=== PATIENT | female | born 1995 | race African-American/Black ===

== ENCOUNTER 2025-01-03 08:24 | Outpatient (AMB) | payer OTHER, SELFPAY ==
--- NOTE | 2025-01-03 08:26 | MHC.PC.OV ---
Vital Signs 01/03/25 08:28 Height 5 ft 6.93 in Weight 362 lb 6 oz BMI 56.9 BP 120/78 Blood Pressure Location Lt brachial Position Sitting Pulse 88 Pulse Source Pulse Oximeter Temp 97.1 F Temp Source Temporal Artery Scan Pulse Oximetry (%) 93 Oxygen Delivery Method Room Air Intake Visit Reasons: establish care Intake Note: Patient is a new patient here to establish care for Schizoaffective disorder, Seizure, Bipolar, Chronic back and neck pain, Arthritis, Kidney issues. Transferring care from [place]. Medical records have been requested and have received. Security Support Analyst Required: Yes Security Support Analyst Language: Medical Records Assistant Name: Shanshadiamitzi (recreational vehicle resort manager) Information Interpreted: non-clinical & clinical (pt decline float operator service prefer recreational vehicle resort manager to translate) Webbing Tacker: Present Accompanied by: QUANTITATIVE CONSULTANT Allergies No Known Allergies Allergy (Verified 01/03/25 08:52) Medication List - Last Reconciled 01/03/25 by Edna Garcia PA-C divalproex (Depakote) 500 mg PO TID 30 days olanzapine 10 mg PO BEDTIME risperidone 2 mg PO DAILY sertraline 100 mg PO DAILY zolpidem 10 mg PO BEDTIME PRN Tobacco use date assessed: 01/03/25 Dental Screening Dental Screen Date: 01/03/25 Did you have a dental visit in the last 12 months?: No Did you have a dental problem in the last 6 months where you did not have access to dental care?: No Was dental information given to patient?: No HPI establish care HPI Details 29-year-old female coming to the office for the 1st time. Presenting with Schizophrenia and Seizure Disorder. The patient's schizophrenia has worsened since discontinuation of her medications in October, with increased auditory hallucinations and aggression reported by her caregiver. Seizures have increased in frequency, occurring almost daily, with episodes described as silent and lasting 15-20 minutes, often triggered by physical exertion. Interruption in her treatment has exacerbated her symptoms. Psychologist through [facility] and on wait list for psychiatrist through [facility]. She does know the frequency and dose of her medications. [facility] Surgical History History of appendectomy Family History (Updated 01/03/25 @ 08:54 by Edna Garcia PA-C) Mother Uterine cancer Other Mental health disorder Social History Housing: Apartment Alcohol intake: never Patient Tobacco Use Status: Never used Tobacco e-Cigarette/Vaping Use: Never Used Second Hand Smoke Exposure: No service: No Current occupational status: disabled Cognitive needs: No Hearing needs: No Vision needs: Yes (Glasses) Female Reproductive History Menstrual control method: none Questionnaire PHQ-9 Over the last 2 weeks, how often have you been bothered by any of the following problems? 1. Little interest or pleasure in doing things: several days 2. Feeling down, depressed, or hopeless: more than half the days 3. Trouble falling or staying asleep, or sleeping too much: more than half the days 4. Feeling tired or having little energy: not at all 5. Poor appetite or overeating: not at all 6. Feeling bad about yourself - or that you are a failure or have let yourself or your family down: not at all 7. Trouble concentrating on things, such as reading the newspaper or watching television: not at all 8. Moving or speaking so slowly that other people could have noticed. Or the opposite - being so fidgety or restless that you have been moving around a lot more than usual: not at all 9. Thoughts that you would be better off or of hurting yourself in some way: not at all Total score: 5 Depression Screening Interpretation: Positive Depression Screening Follow-up: Existing condition and In treatment Depression Screening Done: Yes Source: Developed by Drs. Parag Monroe, Mary Carmen Jacobson, Anuj Rhoades and colleagues, with an educational tracie from [employer]. Thrive Questionnaire Date Thrive assessed: 01/03/25 I am a: Patient What is your living situation today?: I do not have a steady places to live Within the past 12 months, did the food you bought not last and you didn't have the money to get more?: Sometimes True Within the past 12 months, did you worry whether your food would run out before you got money to buy more?: Sometimes True Do you have trouble paying for medicines?: Yes Do you have trouble getting transportation to medical appointments?: Yes Do you have trouble paying your heating and electricity bill?: Yes Do you have trouble taking care of your child, family member or friend?: I choose not to answer this question Do you have trouble with day-to-day activities such as bathing, preparing meals, shopping, managing finances, etc.?: No Are you currently unemployed and looking for a job?: Yes Are you interested in more education?: Yes Please select the resources that you would like help with: None Currently or been in a relationship where the following occur: No concerns reported THRIVE Score: 5 AUDIT C Alcohol Use Questionnaire (AUDIT-C) 1. How often do you have a drink containing alcohol?: Never Total Score: 0 TAMIKA-7 AMB Questionnaire TAMIKA-7 Date TAMIKA - 7 assessed: 01/03/25 Feeling nervous, anxious, or on edge: 0 = Not at all Not being able to stop or control worryin = Not at all Worrying too much about different things: 0 = Not at all Trouble relaxin = Not at all Being so restless that it is hard to sit still: 0 = Not at all Becoming easily annoyed or irritable: 0 = Not at all Feeling afraid as if something awful might happen: 0 = Not at all Total TAMIKA-7 score (0-4 normal; 5-9 mild; 10-14 moderate; 15-21 severe): 0 Source: Developed by Drs. Parag Monroe, Mary Carmen Jacobson, Anuj Rhoades and colleagues, with an educational tracie from [employer]. TAMIKA-7 Assessment Billing TAMIKA-7 Assessment Tool: TAMIKA-7 Assessment 22127 Review of Systems Const Denies body aches, Denies chills, Denies fever(s) and Denies poor appetite Eyes Reports no additional complaints ENT Denies dizziness Card Denies chest pain, Denies lightheadedness and Denies dyspnea Resp Denies cough and Denies dyspnea GI Reports no additional complaints, Denies nausea and Denies vomiting Reports no additional complaints Musc Denies abnormal gait and Reports back pain Skin/Breast Reports system reviewed and no additional complaints, except as documented Neuro Details: seizures Denies abnormal gait and Denies dizziness Psych Reports no additional complaints Physical exam (Primary Care) Vital Signs: Last Vital Signs Temp 97.1 F 01/03/25 08:28 Pulse 88 01/03/25 08:28 BP 120/78 01/03/25 08:28 Pulse Ox 93 01/03/25 08:28 Oxygen Delivery Method Room Air 01/03/25 08:28 BMI result Body Mass Index 56.9 Tobacco/Smoking Status: Tobacco use Status Tobacco use date assessed 01/03/25 01/03/25 08:34 Patient Tobacco Use Status Never used Tobacco 01/03/25 08:34 e-Cigarette/Vaping Use Never Used 01/03/25 08:34 PHQ-9: PHQ-9 Score PHQ-9: Total score 5 01/03/25 11:01 Depression Screening Interpretation: Positive Depression Screening Follow-up: Existing condition and In treatment Thrive Assessment: Date of Thrive Assessment Date Thrive assessed 01/03/25 01/03/25 08:34 Currently or been in a relationship where the following occur: No concerns reported Const General: cooperative, healthy appearing, comfortable and no acute distress Orientation/consciousness: patient oriented x3 HENMT Head: Yes normocephalic Ears: hearing grossly normal bilaterally General nose exam: Normal external nose present Eyes General: appearance normal, both eyes and all related structures Conjunctivae: conjunctivae normal Neck Neck: Yes full ROM and Yes no lymphadenopathy Resp Effort & Inspection: normal respiratory effort Auscultation: clear to auscultation bilaterally, no crackles, no rales, no rhonchi and no wheezes Cardio Rate: regular rate Rhythm: regular rhythm Skin General skin exam: no rashes or lesions noted Neuro General: patient oriented x3 Gait exam (Neuro): Normal gait present Extrem General: Yes normal to inspection, Yes full ROM and No edema Psych Affect: normal affect Attitude: cooperative Insight: Good insight present (Psych) Judgement: Good judgement present (Psych) Coding Level of Care Code New Pt Level 4 (10494) Diagnoses Back pain M54.9 Schizophrenia F20.9 Bipolar disorder F31.9 Seizure disorder G40.909 Additional Codes TAMIKA-7 Assessment Billing - TAMIKA-7 Assessment Tool: TAMIKA-7 Assessment 46310 ([id number]) Assessment & Plan Assessment & Plan (1) Back pain: Code(s): M54.9 - Dorsalgia, unspecified Category: Medical Plan: Advised patient to use Tylenol and ibuprofen as needed for pain. This time defer from muscle relaxers as she is on sedating medications and did not want to contribute to sedation. (2) Schizophrenia: Code(s): F20.9 - Schizophrenia, unspecified Category: Medical Plan: Due to the high dose of multiple medications recommend reintroducing medications slowly. Start with Depakote and Risperdal for mood stabilization and treatment of seizure disorder. Plan to further introduce olanzapine following week. Treatment for schizophrenia will include a gradual introduction of Risperdal and Depakote to manage mood stabilization and seizure control, ensuring adherence to reduce relapse. First week start with Depakote and Risperdal 2nd week introduce olanzapine and follow up at that time with Depakote level to be drawn. (3) Bipolar disorder: Code(s): F31.9 - Bipolar disorder, unspecified Category: Medical Plan: Plan to restart on Risperdal for the first week along with Depakote and re-introduce Olanzapine in week 2 and follow up at that time. Currently following with [facility] for counseling services and on wait list for psychiatrist. (4) Seizure disorder: Code(s): G40.909 - Epilepsy, unspecified, not intractable, without status epilepticus Category: Medical Plan: Plan to restart on Depakote 2 redraw labs in 2 weeks after initiation for Depakote levels. Referral placed to Neurology for further management. Plan Referral to a neurologist and human resources recruiter is initiated to provide comprehensive care. The patient will continue receiving psychological support through [facility], with emphasis on psychiatric referral for integrated care. This note was constructed using voice recognition software. While every effort has been made to ensure accuracy and hat body inspector, still areas may have been included sometimes these areas may affect the content or meeting of the given symptoms. Total time spent caring for the patient today was 30 minutes. This includes time spent before the visit reviewing the chart, time spent during the visit, and time spent after the visit and documentation. Patient was informed and verbally consented to the use of an ambient scribe for clinic note documentation during this visit. Orders: Orders Complete Blood Count Auto Diff Today Z00.00 - Encounter for general adult medical examination without abnormal findings Comprehensive Met. Panel Today Z00.00 - Encounter for general adult medical examination without abnormal findings TSH reflex Free T4 Today Z00.00 - Encounter for general adult medical examination without abnormal findings Free T4 (Free Thyroxine) Today Z00.00 - Encounter for general adult medical examination without abnormal findings Vitamin B12 and Folate Today Z00.00 - Encounter for general adult medical examination without abnormal findings Vitamin D 25-OH Total Today Z00.00 - Encounter for general adult medical examination without abnormal findings Hemoglobin A1c Today Z13.1 - Encounter for screening for diabetes mellitus Referrals FOLDER TIER Referral Z12.4 - Encounter for screening for malignant neoplasm of cervix Optometry Referral Z00.00 - Encounter for general adult medical examination without abnormal findings Neurology Referral G40.909 - Epilepsy, unspecified, not intractable, without status epilepticus Medications: New zolpidem 10 mg PO BEDTIME PRN 30 tabs 0RF sleep risperidone 2 mg PO DAILY 90 tabs 0RF divalproex (Depakote) 500 mg PO TID 30 days 90 tabs 0RF sertraline 100 mg PO DAILY 90 tabs 1RF olanzapine 10 mg PO BEDTIME 90 tabs 0RF
[2025-01-03 08:28] VITALS: BP 120/78; PULSE 88; TEMP 36.2; O2SAT 93; BMI 56.9
--- OUTSIDE RECORDS SUMMARY | 2025-01-03 08:41 | XMS_ITS | Encounter Summary ---
Author Organization [employer] Address [address] [place] [address] Care Team Providers Care Casing Sewer Name Role Phone Unavailable Primary Care Provider Unavailabl e Reason for Visit * Reason Onset Date Comments New patient appt. 10/03/2024 Encounter Details Date Type Department Care Team (Late st Contact Info) Description 10/03/2024 Telephone [facility] [address] [place] [address] Singh Dunham MD [address] [place] [address] New patient appt. Social History Tobacco Use Types Packs/Day Years Used Date Smoking Tobacco: Never Assessed Comments Unknown Sex and Gender Information Value Date Recorded Sex Assigned at Female 10/03/2024 10:11 AM EST Legal Sex Female 10:11 AM EST Gender Identity Female 10/03/2024 10:11 AM EST Sexual Orientation Not on file documented as of this encounter Miscellaneous Notes * Telephone Encounter - Tri Reich - 12/24/2024 11:36 AM EDT Outgoing call to patient to book New Patient appt. No answer. ( Need to swicth plan to C3 ) * Telephone Encounter - Tri Reich - 10/03/2024 10:13 AM EST Patient added to [facility] New patient wait list as of 10/03/24. documented in this encounter Plan of Treatment Not on file documented as of this encounter Visit Diagnoses Not on filedocumented in this encounter
--- OUTSIDE RECORDS SUMMARY | 2025-01-03 08:41 | XMS_ITS | Clinical Summary ---
Author Organization [employer] Address [address] [place] [address] Care Team Providers Care Phone Screener Name Role Phone Unavailable Primary Care Provider Unavailabl e Social History Tobacco Use Types Packs/Day Years Used Date Smoking Tobacco: Never Assessed Comments Unknown Sex and Gender Information Value Date Recorded Sex Assigned at Female 10/03/2024 10:11 AM EST Legal Sex Female 10:11 AM EST Gender Identity Female 10/03/2024 10:11 AM EST Sexual Orientation Not on file Plan of Treatment Health Maintenance Due Date Last Done Comments Depression Screening 1993 HIV Screening 1993 SDOH Screening 1993 Alcohol/Substance Use Screening 2005 Tobacco Screening 2005 Family Planning (PISQ) 2008 Hepatitis C Screening 2011 DTaP/Tdap/Td Vaccines (1 - Tdap) 2012 Hepatitis B Vaccines (1 of 3 - 19+ 3-dose series) 2012 Pap Smear 2014 Cervical Cancer Screening 2023 HPV/Cotest 2023 COVID-19 Vaccine (1 - 2023-2 5 season) 2024 Influenza Vaccine (#1) 2024 Zoster Vaccines (1 of 2) 2043 RSV Patients and Pa tients Aged 60 years or older (1 - 1-dose 75+ series) 2068 HIB Vaccines Aged Out No longer eligi ble based on patient's age to complete this topic HPV Vaccines Aged Out No longer eligi ble based on patient's age to complete this topic Hepatitis A Vaccines Aged Out No long er eligible based on patient's age to complete this topic IPV Vaccines Aged Out No longer eligi ble based on patient's age to complete this topic Meningococcal Vaccine Aged Out No jakob anurag eligible based on patient's age to complete this topic Pneumococcal Vaccine: Pediat rics (0 to 5 Years) and At-Risk Patients (6 to 49) Years) Aged Out No longer eligible b ased on patient's age to complete this topic RSV under 20 months Aged Out No longe r eligible based on patient's age to complete this topic Rotavirus Vaccines Aged Out No longer eligible based on patient's age to complete this topic Insurance [facility] STANDARD
== END 2025-01-03 09:22 | disposition home or self-care (01) ==
DX: M54.9 Dorsalgia, unspecified (principal); F20.9 Schizophrenia, unspecified; F31.9 Bipolar disorder, unspecified; G40.909 Epilepsy, unspecified, not intractable, without status epilepticus

== ENCOUNTER → 2025-01-03 08:24 | Outpatient (BNVA) | payer OTHER, SELFPAY | DX: M54.9 Dorsalgia, unspecified (principal); F20.9 Schizophrenia, unspecified; F31.9 Bipolar disorder, unspecified; G40.909 Epilepsy, unspecified, not intractable, without status epilepticus | CPT/HCPCS: 96127; 99202 ==

== ENCOUNTER 2025-01-17 10:53 | Outpatient (REF) | payer OTHER, SELFPAY ==
[2025-01-17 12:34] LABS: MANUAL DIFF FLAG NO
[2025-01-17 12:51] LABS: Basophils Percent Auto 0.3 % (0-2); Eosinophils Absolute Auto 0.2 X10*3/uL (0.0-0.4); Eosinophils Percent Auto 1.9 % (0-4); Hematocrit 39.9 % (37.0-47.0); Hemoglobin 12.9 g/dl (12.0-16.0); Imm Gran Abs Auto 0.01 X10*3/uL (0.00-0.03); Imm Gran Pct Auto 0.1 % (0.0-0.4); Lymphocytes Absolute Auto 2.5 X10*3/uL (1.2-4.9); Lymphocytes Percent Auto 31.8 % (20-40); Mean Corpuscular HGB Conc 32.3 g/dl (31.0-35.0); Mean Corpuscular Volume 83.5 fL (80.0-98.0); Mean Platelet Volume 9.6 fL (9.4-12.3); Monocytes Absolute Auto 0.4 X10*3/uL (0.1-1.2); Monocytes Percent Auto 5.6 % (2-11); Neutrophils Absolute Auto 4.8 x10*3/uL (2.0-8.3); Neutrophils Percent Auto 60.3 % (45-73); Platelet Count 281 X10*3/uL (160-400); Red Blood Count 4.78 X10*6/uL (4.20-5.50); Red Cell Distribution Width 14.2 % (11.0-16.0); White Blood Count 7.9 X10*3/uL (4.8-10.8)
[2025-01-17 12:59] LABS: Estimated Average Glucose 117 mg/dL; Hemoglobin A1c % 5.7 % (<6.0); Total Hemoglobin (HGBA1C) 3400.2538 umol/L
[2025-01-17 13:30] LABS: Valproate 19.7 mcg/mL (50.0-100.0)
[2025-01-17 13:39] LABS: Alanine Aminotransferase 37 U/L (0-31); Albumin Level 3.9 g/dL (3.5-5.0); Alkaline Phosphatase 89 U/L (39-117); Anion Gap 12 (12-20); Aspartate Amino Transferase 20 U/L (5-31); Bilirubin Total 0.4 mg/dL (0.0-1.0); Blood Urea Nitrogen 12 mg/dL (9-16); Carbon Dioxide 23 mmol/L (22-29); Chloride 111 mmol/L (96-108); Estimated Glomerular Filt Rate > 60; Glucose Random 86 mg/dL (60-115); Sodium 142 mmol/L (135-145)
[2025-01-17 13:54] LABS: Free T4 (Free Thyroxine) 1.06 ng/dL (0.71-1.85); TSH reflex Free T4 0.71 uIU/mL (0.32-4.0)
[2025-01-17 14:05] LABS: Folate 11.6 ng/mL (> or = 4.0); Vitamin B12 475 pg/mL (200-900)
--- OUTSIDE RECORDS SUMMARY | 2025-01-17 14:05 | XMS_ITS | Clinical Summary ---
Author Organization [employer] Address [address] [place] [address] Care Team Providers Care Physician Practice Administrator Name Role Phone Unavailable Primary Care Provider [...] patient's age to complete this topic Insurance [facility] STANDARD
== END 2025-01-17 10:54 | disposition home or self-care (01) ==
LOC: HO.LAB 10:53
DX: G40.909 Epilepsy, unspecified, not intractable, without status epilepticus (principal); F20.9 Schizophrenia, unspecified; F31.9 Bipolar disorder, unspecified; R26.81 Unsteadiness on feet; R60.0 Localized edema; Z00.00 Encounter for general adult medical examination without abnormal findings; Z13.1 Encounter for screening for diabetes mellitus
CPT/HCPCS: 36415; 80053; 80164; 82306; 82607; 82746; 83036; 84439; 84443; 85025; 99212

== ENCOUNTER 2025-01-17 10:53 | Outpatient (AMB) | payer OTHER, SELFPAY ==
--- NOTE | 2025-01-17 11:02 | A.OFFPC_ITS ---
Vital Signs 01/17/25 11:04 Height 5 ft 6.93 in Weight 365 lb 8 oz BMI 57.4 BP 120/80 Blood Pressure Location Lt brachial Position Sitting Pulse 68 Pulse Source Pulse Oximeter Temp 97.1 F Temp Source Temporal Artery Scan Pulse Oximetry (%) 96 Oxygen Delivery Method Room Air Intake Visit Reasons: 2 week f/u Intake Note: Patient is here to follow up on med review. Complaint of swelling of both legs. Transportation Services Representative Required: Yes Transportation Services Representative Language: Vascular Tech Name: Tori (alodize machine operator) Information Interpreted: non-clinical & clinical (pt decline unloading checker service prefer DIRECTOR CRITICAL CARE to translate for her) Sharepoint Analyst: Present Accompanied by: DIRECTOR CRITICAL CARE Allergies No Known Allergies Allergy (Verified 01/17/25 11:10) Medication List - Last Reconciled 01/17/25 by Edna Garcia PA-C divalproex (Depakote) 500 mg PO TID 30 days olanzapine 10 mg PO BEDTIME risperidone 2 mg PO DAILY sertraline 100 mg PO DAILY zolpidem 10 mg PO BEDTIME PRN Tobacco use date assessed: 01/03/25 Dental Screening Dental Screen Date: 01/03/25 HPI 2 week f/u HPI Details 29-year-old female with past medical his tory of bipolar disorder, schizophrenia and seizure disorder last seen 12/2024 coming in for medication follow up. Presenting with recurrent seizures and associated symptoms. The seizures are ongoing and began before the last medical consultation. She reports mild headaches that began approximately two-three weeks ago, which intensify with sun exposure and environmental changes, and do not jethro spontaneously. She has experienced drowsiness attributed to medications, including risperidone, olanzapine, Depakote, and Zolpidem, affecting her daily function due to excessive tiredness. Peripheral edema in the lower extremities is noted, aggravated by increased physical activity. Although she has not been on antihypertensive medication since October, her blood pressure remains well- controlled. [facility] Surgical History History of appendectomy Family History Mother Uterine cancer Other Mental health disorder Social History Housing: Apartment Alcohol intake: never Patient Tobacco Use Status: Never used Tobacco e-Cigarette/Vaping Use: Never Used Second Hand Smoke Exposure: No service: No Current occupational status: disabled Cognitive needs: No Hearing needs: No Vision needs: Yes (Glasses) Questionnaire Thrive Questionnaire Date Thrive assessed: 11/05/24 I am a: Patient What is your living situation today?: I do not have a steady places to live I am temporarily staying with others Within the past 12 months, did the food you bought not last and you didn't have the money to get more?: Sometimes True Within the past 12 months, did you worry whether your food would run out before you got money to buy more?: Sometimes True Do you have trouble paying for medicines?: Yes Do you have trouble getting transportation to medical appointments?: Yes Do you have trouble paying your heating and electricity bill?: Yes Do you have trouble taking care of your child, family member or friend?: I choose not to answer this question Do you have trouble with day-to-day activities such as bathing, preparing meals, shopping, managing finances, etc.?: No Are you currently unemployed and looking for a job?: Yes Are you interested in more education?: Yes THRIVE Score: 5 TAMIKA-7 AMB Questionnaire TAMIKA-7 Date TAMIKA - 7 assessed: 01/03/25 Source: Developed by Drs. Parag Monroe, Mary Carmen Jacobson, Anuj Rhoades and colleagues, with an educational tracie from [employer]. Review of Systems Const Denies body aches, Denies chills, Denies fever(s), Denies headache(s) and Denies poor appetite Eyes Reports no additional complaints ENT Denies dizziness and Denies headache(s) Card Denies chest pain and Denies dyspnea Resp Denies dyspnea GI Denies abdominal pain, Denies constipation, Denies diarrhea, Denies nausea and Denies vomiting Reports no additional complaints Musc Reports no additional complaints and Denies abnormal gait Skin/Breast Reports system reviewed and no additional complaints, except as documented Neuro Denies abnormal gait, Denies dizziness and Denies headache(s) Psych Reports no additional complaints Physical exam (Primary Care) Vital Signs: Last Vital Signs Temp 97.1 F 01/17/25 11:04 Oxygen Delivery Method Room Air 01/17/25 11:04 BMI result Body Mass Index 57.4 Tobacco/Smoking Status: Tobacco use Status Tobacco use date assessed 01/03/25 01/03/25 08:34 Patient Tobacco Use Status Never used Tobacco 01/03/25 08:34 e-Cigarette/Vaping Use Never Used 01/03/25 08:34 Thrive Assessment: Date of Thrive Assessment Date Thrive assessed 11/05/24 01/17/25 10:53 Const General: cooperative, healthy appearing, comfortable and no acute distress Orientation/consciousness: patient oriented x3 HENMT Head: Yes normocephalic Ears: hearing grossly normal bilaterally General nose exam: Normal external nose present Eyes General: appearance normal, both eyes and all related structures Conjunctivae: conjunctivae normal Neck Neck: Yes full ROM and Yes no lymphadenopathy Resp Effort & Inspection: normal respiratory effort Auscultation: clear to auscultation bilaterally, no crackles, no rales, no rhonchi and no wheezes Cardio Rate: regular rate Rhythm: regular rhythm Skin General skin exam: no rashes or lesions noted Neuro General: patient oriented x3 Gait exam (Neuro): Normal gait present Extrem General: Yes normal to inspection, Yes full ROM and No edema Psych Affect: normal affect Attitude: cooperative Insight: Good insight present (Psych) Judgement: Good judgement present (Psych) Coding Level of Care Code Est Pt Level 4 (75655) Diagnoses Seizure disorder G40.909 Schizophrenia F20.9 Bipolar disorder F31.9 Gait instability R26.81 Lower extremity edema R60.0 Assessment & Plan Assessment & Plan (1) Seizure disorder: Code(s): G40.909 - Epilepsy, unspecified, not intractable, without status epilepticus Category: Medical Plan: Per patient's DIRECTOR CRITICAL CARE patient had a seizure several days ago despite the use of her Depakote. Ordered for valproic acid labs and also discussed with DIRECTOR CRITICAL CARE if the patient has as breakthrough seizure to go to the ER regardless of whether the patient is stable or not. Patient was also provided with neurology's phone number today advised to call today for appointment (2) Schizophrenia: Code(s): F20.9 - Schizophrenia, unspecified Category: Medical Plan: Patient on multiple psych medications reports feeling fatigued however they do manage her symptoms well. Referral placed urgently to outpatient psych clinic and message sent to [facility] as well. (3) Bipolar disorder: Code(s): F31.9 - Bipolar disorder, unspecified Category: Medical Plan: See above plan for schizophrenia. Patient to restart on her sertraline advised to use 50 mg for 1-2 weeks before increasing to 100 mg for tolerability. (4) Gait instability: Code(s): R26.81 - Unsteadiness on feet Category: Medical Plan: Patient having gait instability related to functional status as well as lower extremity edema. Patient would like a Rollator walker for prolonged distance which order was placed today. (5) Lower extremity edema: Code(s): R60.0 - Localized edema Category: Medical Plan: Patient having lower extremity edema previously on Lasix. I discussed with patient this is not appropriate given her age and minor symptoms. No evidence of fluid overload at this time lungs are clear to auscultation and very mild edema in bilateral lower extremities. Advised the use of compression stockings and patient was provided with a prescription today. Also advised to elevate the legs and exercise as tolerated. Plan I will monitor the patient's seizure activity closely and assess Depakote levels due to persistent migraine headaches. Urgent ER visits are advised should seizures worsen. Conservative management of leg edema includes leg elevation, c ompression therapy, and regular activity. Although her blood pressure is currently stable, I await information on her previous hypertension medication to guide further treatment. Referrals to neurologists and an eye exam appointment are pending to address outstanding concerns. This note was constructed using voice recognition software. While every effort has been made to ensure accuracy and film developer, still areas may have been included sometimes these areas may affect the content or meeting of the given symptoms. Total time spent caring for the patient today was twenty minutes. This includes time spent before the visit reviewing the chart, time spent during the visit, and time spent after the visit and documentation. Patient was informed and verbally consented to the use of an ambient scribe for clinic note documentation during this visit. Orders: Orders Valproate Today G40.909 - Epilepsy, unspecified, not intractable, without status epilepticus Referrals Psychiatry Outpatient Consultation Service F20.9 - Schizophrenia, unspecified Medications: New comp.stocking,knee,long,medium As directed 10-15mmHg 12 ea 0RF R60.0 - Localized edema walker (Ultra-Light Rollator misc) As directed 1 ea 0RF R26.81 - Unsteadiness on feet, R60.0 - Localized edema
[2025-01-17 11:04] VITALS: BP 120/80; PULSE 68; TEMP 36.2; O2SAT 96; BMI 57.4
--- OUTSIDE RECORDS SUMMARY | 2025-01-17 12:37 | XMS_ITS | Clinical Summary ---
Author Organization [employer] Address [address] [place] [address] Care Team Providers Care Outreach Professional Name Role Phone Unavailable Primary Care Provider [...] patient's age to complete this topic Insurance [facility] STANDARD
== END 2025-01-17 11:47 | disposition home or self-care (01) ==
LOC: HO.HMCH 10:53
DX: G40.909 Epilepsy, unspecified, not intractable, without status epilepticus (principal); F20.9 Schizophrenia, unspecified; F31.9 Bipolar disorder, unspecified; R26.81 Unsteadiness on feet; R60.0 Localized edema

== ENCOUNTER 2025-03-03 12:48 | Outpatient (AMB) | payer MEDICAID, SELFPAY ==
--- OUTSIDE RECORDS SUMMARY | 2025-03-03 13:01 | XMS_ITS | Clinical Summary ---
Author Organization [employer] Address [address] [place] [address] Care Team Providers Care Hand Polisher Name Role Phone Unavailable Primary Care Provider [...] patient's age to complete this topic Meningococcal B Vaccine Aged Out No l onger eligible based on patient's age to complete [...] patient's age to complete this topic Insurance STANDARD
--- NOTE | 2025-03-03 13:06 | MHC.PC.OV ---
Vital Signs 03/03/25 13:10 Height 5 ft 6.93 in Weight 383 lb 9.669 oz BMI 60.2 BP 130/72 Blood Pressure Location Lt brachial Position Sitting Pulse 98 Pulse Source Pulse Oximeter Temp 97.1 F Temp Source Temporal Artery Scan Pulse Oximetry (%) 97 Oxygen Delivery Method Room Air Intake Visit Reasons: f/u seizure d/o and psych Intake Note: Patient is here to follow up on Seizure, psych. Documentation Supervisor Required: Yes Documentation Supervisor Language: Manufacturing Finance Manager Name: Tammy ([id number]) Information Interpreted: non-clinical & clinical It Compliance Analyst: Present Accompanied by: Family/Other Allergies No Known Allergies Allergy (Verified 03/03/25 13:21) Medication List - Last Reconciled 03/03/25 by Edna Garcia PA-C comp.stocking,knee,long,medium As directed 10-15mmHg divalproex (Depakote) 500 mg PO TID 30 days divalproex 250 mg PO TID olanzapine 10 mg PO BEDTIME risperidone 2 mg PO DAILY sertraline 100 mg PO DAILY walker (Ultra-Light Rollator misc) As directed zolpidem 10 mg PO BEDTIME PRN Tobacco use date assessed: 03/03/25 Dental Screening Dental Screen Date: 01/03/25 HPI f/u seizure d/o and psych HPI Details 29-year-old female with past medical history of bipolar disorder, schizophrenia and seizure disorder last seen 01/2025 coming in for medication follow up. hide dyer Tammy ([id number]) was used for the duration of this visit. Presenting with management needs for a seizure disorder. She has not experienced seizures since the last visit, indicating current medication dosage may be effective. Patient has an upcoming appointment with Neurology for further evaluation of her seizure management and associated issues like CPAP for sleep disturbances. Reports housing instability as she resides in a car, seeking assistance with housing due to her seizure disorder and need for personal care support. Mood improvement noted on Risperidone and Sertraline since the last visit. Awaiting psychiatric service appointment. Newly using a walker and expresses satisfaction with it. Patient has not yet completed her blood work for Depakote levels after her recent dose increase. [facility] Surgical History History of appendectomy Family History Mother Uterine cancer Other Mental health disorder Social History Housing: Apartment Alcohol intake: never Patient Tobacco Use Status: Never used Tobacco e-Cigarette/Vaping Use: Never Used Second Hand Smoke Exposure: No service: No Current occupational status: disabled Cognitive needs: No Hearing needs: No Vision needs: Yes (Glasses) Questionnaire PHQ-9 Over the last 2 weeks, how often have you been bothered by any of the following problems? 1. Little interest or pleasure in doing things: nearly every day 2. Feeling down, depressed, or hopeless: nearly every day 3. Trouble falling or staying asleep, or sleeping too much: nearly every day 4. Feeling tired or having little energy: nearly every day 5. Poor appetite or overeating: more than half the days 6. Feeling bad about yourself - or that you are a failure or have let yourself or your family down: nearly every day 7. Trouble concentrating on things, such as reading the newspaper or watching television: nearly every day 8. Moving or speaking so slowly that other people could have noticed. Or the opposite - being so fidgety or restless that you have been moving around a lot more than usual: nearly every day 9. Thoughts that you would be better off or of hurting yourself in some way: several days Total score: 24 Depression Screening Interpretation: Positive Depression Screening Done: Yes Source: Developed by Drs. Parag Monroe, Mary Carmen Jacobson, Anuj Rhoades and colleagues, with an educational tracie from [employer]. Thrive Questionnaire Date Thrive assessed: 11/05/24 I am a: Patient What is your living situation today?: I do not have a steady places to live I am temporarily staying with others Within the past 12 months, did the food you bought not last and you didn't have the money to get more?: Sometimes True Within the past 12 months, did you worry whether your food would run out before you got money to buy more?: Sometimes True Do you have trouble paying for medicines?: Yes Do you have trouble getting transportation to medical appointments?: Yes Do you have trouble paying your heating and electricity bill?: Yes Do you have trouble taking care of your child, family member or friend?: I choose not to answer this question Do you have trouble with day-to-day activities such as bathing, preparing meals, shopping, managing finances, etc.?: No Are you currently unemployed and looking for a job?: Yes Are you interested in more education?: Yes THRIVE Score: 5 TAMIKA-7 AMB Questionnaire TAMIKA-7 Date TAMIKA - 7 assessed: 01/03/25 Source: Developed by Drs. Parag Monroe, Mary Carmen Jacobson, Anuj Rhoades and colleagues, with an educational tracie from [employer]. Review of Systems Const Denies body aches, Denies chills, Denies fever(s) and Denies poor appetite Eyes Reports no additional complaints ENT Reports no additional complaints Card Denies chest pain, Denies lightheadedness and Denies dyspnea Resp Denies dyspnea GI Denies nausea and Denies vomiting Reports no additional complaints Musc Reports abnormal gait Skin/Breast Reports system reviewed and no additional complaints, except as documented Neuro Details: No reported seizures Reports abnormal gait Psych Reports no additional complaints Physical exam (Primary Care) Vital Signs: Last Vital Signs Temp 97.1 F 03/03/25 13:10 Pulse 98 03/03/25 13:10 BP 130/72 03/03/25 13:10 Pulse Ox 97 03/03/25 13:10 Oxygen Delivery Method Room Air 03/03/25 13:10 BMI result Body Mass Index 60.2 Tobacco/Smoking Status: Tobacco use Status Tobacco use date assessed 03/03/25 03/03/25 13:19 Patient Tobacco Use Status Never used Tobacco 03/03/25 13:07 e-Cigarette/Vaping Use Never Used 03/03/25 13:07 PHQ-9: PHQ-9 Score PHQ-9: Total score 24 03/03/25 16:09 Depression Screening Interpretation: Positive Thrive Assessment: Date of Thrive Assessment Date Thrive assessed 11/05/24 03/03/25 13:07 Const General: cooperative, healthy appearing, comfortable and no acute distress Orientation/consciousness: patient oriented x3 HENMT Head: Yes normocephalic Ears: hearing grossly normal bilaterally General nose exam: Normal external nose present Eyes General: appearance normal, both eyes and all related structures Conjunctivae: conjunctivae normal Neck Neck: Yes full ROM and Yes no lymphadenopathy Resp Effort & Inspection: normal respiratory effort Auscultation: clear to auscultation bilaterally, no crackles, no rales, no rhonchi and no wheezes Cardio Rate: regular rate Rhythm: regular rhythm Skin General skin exam: no rashes or lesions noted Neuro General: patient oriented x3 Gait exam (Neuro): Normal gait present Extrem General: Yes normal to inspection, Yes full ROM and No edema Psych Affect: normal affect Attitude: cooperative Insight: Good insight present (Psych) Judgement: Good judgement present (Psych) Coding Level of Care Code Est Pt Level 3 (96800) Diagnoses Hypersomnolence G47.10 Seizure disorder G40.909 Schizophrenia F20.9 Bipolar disorder F31.9 Gait instability R26.81 Lower extremity edema R60.0 Assessment & Plan Assessment & Plan (1) Hypersomnolence: Code(s): G47.10 - Hypersomnia, unspecified Category: Medical Plan: Patient complaining of hypersomnolence and shortness of breath at night plan to obtain sleep study for further evaluation. Patient also has a evaluation by Neurology coming up later this month. (2) Seizure disorder: Code(s): G40.909 - Epilepsy, unspecified, not intractable, without status epilepticus Category: Medical Plan: Since increasing Depakote patient has not had any further seizures. Reminded patient about blood work to draw Depakote levels. Patient has a appointment with Neurology later this month for further evaluation as well (3) Schizophrenia: Code(s): F20.9 - Schizophrenia, unspecified Category: Medical Plan: Patient on multiple psych medications reports feeling fatigued however they do manage her symptoms well. Referral placed urgently to outpatient psych clinic and message sent to [facility] as well at last visit plan to follow up with these providers for status on referrals (4) Bipolar disorder: Code(s): F31.9 - Bipolar disorder, unspecified Category: Medical Plan: See above plan for schizophrenia. Patient is doing well on sertraline (5) Gait instability: Code(s): R26.81 - Unsteadiness on feet Category: Medical Plan: Patient having gait instability related to functional status as well as lower extremity edema. She has been using a Rollator walker with good benefit and has been using compression stockings as well. (6) Lower extremity edema: Code(s): R60.0 - Localized edema Category: Medical Plan: Patient has been using compression stockings and noticed an improvement in her lower extremity edema. Plan to continue with conservative measurement, exercise as tolerated compression stockings and elevation. Plan The patient will follow up with Neurology on March 11 to further assess and manage her seizure disorder and explore sleep-related issues, such as CPAP use. Current seizure control is effective under Depakote, with ongoing blood level monitoring required. Medications Risperidone and Sertraline will continue unchanged given mood improvement, while a psychiatric consult remains pending. A note was provided stating the need for [facility] services, and support from [facility] is sought for assistance in housing. A sleep study will be arranged. Follow-up will be planned in three months for re-evaluation. This note was constructed using voice recognition software. While every effort has been made to ensure accuracy and freelance graphic designer, still areas may have been included sometimes these areas may affect the content or meeting of the given symptoms. Total time spent caring for the patient today was 20 minutes. This includes time spent before the visit reviewing the chart, time spent during the visit, and time spent after the visit and documentation. Patient was informed and verbally consented to the use of an ambient scribe for clinic note documentation during this visit. Orders: Orders RT home sleep study Today G47.10 - Hypersomnia, unspecified
[2025-03-03 13:10] VITALS: BP 130/72; PULSE 98; TEMP 36.2; O2SAT 97; BMI 60.2
== END 2025-03-03 13:58 | disposition home or self-care (01) ==
LOC: HO.HMCH 12:49
DX: G47.10 Hypersomnia, unspecified (principal); G40.909 Epilepsy, unspecified, not intractable, without status epilepticus; F20.9 Schizophrenia, unspecified; F31.9 Bipolar disorder, unspecified; R26.81 Unsteadiness on feet; R60.0 Localized edema

== ENCOUNTER → 2025-03-03 12:48 | Outpatient (BNVA) | payer MEDICAID, SELFPAY | DX: G47.10 Hypersomnia, unspecified (principal); G40.909 Epilepsy, unspecified, not intractable, without status epilepticus; F20.9 Schizophrenia, unspecified; F31.9 Bipolar disorder, unspecified; R26.81 Unsteadiness on feet; R60.0 Localized edema | CPT/HCPCS: 99212 ==

== ENCOUNTER 2025-03-06 19:51 | Inpatient (IN) | payer MEDICAID, SELFPAY ==
[2025-03-06 19:55] VITALS: BP 155/89; PULSE 89; RESP 16; TEMP 36.2; O2SAT 97; BMI 72.7
--- NOTE | 2025-03-06 20:07 | ECG_ITS ---
Test Reason : seizure? Blood Pressure : */* mmHG Vent. Rate : 79 BPM Atrial Rate : 79 BPM P-R Int : 178 ms QRS Dur : 88 ms QT Int : 406 ms P-R-T Axes : 40 -5 35 degrees QTcB Int : 465 ms Normal sinus rhythm Minimal voltage criteria for LVH, may be normal variant ( R in aVL ) Borderline ECG No previous ECGs available Referred By: Generic ED Physician Electronically Signed By: Amos Pablo
[2025-03-06 20:22] LABS: MANUAL DIFF FLAG NO
[2025-03-06 20:26] LABS: Basophils Percent Auto 0.3 % (0-2); Eosinophils Absolute Auto 0.2 X10*3/uL (0.0-0.4); Eosinophils Percent Auto 2.8 % (0-4); Hemoglobin 12.4 g/dl (12.0-16.0); Imm Gran Abs Auto 0.02 X10*3/uL (0.00-0.03); Imm Gran Pct Auto 0.3 % (0.0-0.4); Lymphocytes Absolute Auto 3.1 X10*3/uL (1.2-4.9); Lymphocytes Percent Auto 38.9 % (20-40); Mean Corpuscular HGB Conc 32.6 g/dl (31.0-35.0); Mean Corpuscular Hemoglobin 26.8 pg (27.0-33.0); Mean Corpuscular Volume 82.3 fL (80.0-98.0); Mean Platelet Volume 9.3 fL (9.4-12.3); Monocytes Absolute Auto 0.6 X10*3/uL (0.1-1.2); Monocytes Percent Auto 7.8 % (2-11); Neutrophils Absolute Auto 3.9 x10*3/uL (2.0-8.3); Neutrophils Percent Auto 49.9 % (45-73); Platelet Count 237 X10*3/uL (160-400); Red Blood Count 4.62 X10*6/uL (4.20-5.50); Red Cell Distribution Width 13.9 % (11.0-16.0); White Blood Count 7.9 X10*3/uL (4.8-10.8)
--- NOTE | 2025-03-06 20:34 | PC.NURSE ---
pt foreign exchange services manager, ekg, labs collected pt on 1:1 for safety, seizure pads in place.
[2025-03-06 20:40] LABS: Valproate 18.3 mcg/mL (50.0-100.0)
[2025-03-06 20:42] LABS: Alanine Aminotransferase 55 U/L (0-31); Albumin Level 3.7 g/dL (3.5-5.0); Alkaline Phosphatase 106 U/L (39-117); Anion Gap 12 (12-20); Aspartate Amino Transferase 27 U/L (5-31); Bilirubin Total 0.3 mg/dL (0.0-1.0); Blood Urea Nitrogen 13 mg/dL (9-16); Calcium 8.9 mg/dL (8.4-10.2); Carbon Dioxide 24 mmol/L (22-29); Chloride 110 mmol/L (96-108); Creatinine Clr Calc Pharmacy 164.6; Estimated Glomerular Filt Rate > 60; Glucose Random 142 mg/dL (60-115); Potassium 4.2 mmol/L (3.3-5.1); Sodium 142 mmol/L (135-145); Total Protein 6.7 g/dL (6.5-8.0)
[2025-03-06 20:51] LABS: HCG Quantitative < 2 mIU/mL
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
[2025-03-06 21:00] LABS: Influenza A PCR NEGATIVE (Negative); Influenza B PCR NEGATIVE (Negative); Resp Syncy Virus RNA Qual PCR NEGATIVE (Negative); SARS COV2 PCR INHOUSE NEGATIVE (Negative)
[2025-03-06 21:04] VITALS: BP 123/87; PULSE 83; RESP 16; TEMP 34.4; O2SAT 100
[2025-03-06] MEDS: Divalproex Sodium 250 MG TABLET.DR 750 MG PO (21:20)
--- NOTE | 2025-03-06 21:21 | PC.NURSE ---
medicated per mar.
--- NOTE | 2025-03-06 21:27 | PC.NURSE ---
report given to Hailey. awaiting to be transferred to pod.
[2025-03-06 21:33] LABS: Ethanol < 10 mg/dL
--- NOTE | 2025-03-06 22:52 | PC.NURSE ---
late entry, patient transitioned into pod, provided snack and drinks, asked patient for urine w lean [employer] black belt present.
--- NOTE | 2025-03-07 01:18 | PC.NURSE ---
provider requests client awakened to facilitate assessment
--- NOTE | 2025-03-07 01:27 | PC.NURSE ---
t/w brought drinks and light snacks to bedside once urine collected to hopefully facilitate return to restfulness.
[2025-03-07 01:34] LABS: Appearance Urine Clear; Color Urine Yellow; Glucose Urine UA Negative (Negative); Leukocyte Esterase Urine Small (1+) (Negative); Nitrite Urine Negative (Negative); Specific Gravity - Urine 1.025 (1.005-1.025); UMIC TRIGGER UACC YES; Urine Blood Negative (Negative); Urine Ketones Trace mg/dL (Negative); Urine Protein Negative (Neg-Trace)
[2025-03-07 01:40] LABS: Bacteria Urine None Seen (None Seen); Hyaline Casts Urine 0-2 /LPF (0-2); RBC Urine 0-2 /HPF (0-2); UACC Culture Trigger YES; WBC Urine 21-50 /HPF (0-5)
[2025-03-07 01:45] LABS: Amphetamine Screen Urine Not Detected (Not Detect); Barbiturates, Urine Not Detected (Not Detect); Benzodiazepines Screen Urine Not Detected (Not Detect); Buprenorphine Scr Not Detected (Not Detect); Cannabinoid Screen Urine Not Detected (Not Detect); Cocaine Screen Urine Not Detected (Not Detect); Fentanyl, urine Not Detected (Not Detect); Methadone Screen, Urine Not Detected (Not Detect); Opiate Screen Urine Not Detected (Not Detect); Oxycodone Screen Urine Not Detected (Not Detect); Phencyclidine Screen Urine Not Detected (Not Detect)
--- NOTE | 2025-03-07 03:20 | PC.NURSE ---
t/w reinforced post interview that client didnt need to remain in room, however a peer seemed a little excessively curious regarding waving to patient (for the time of 299) and t/w reinforced appropriate boundaries for client.
[2025-03-07 06:05] VITALS: BP 119/56; PULSE 75; RESP 16; TEMP 36.7; O2SAT 96
--- NOTE | 2025-03-07 07:29 | PC.NURSE ---
Assumed care of patient at 0645, patient appears to be in no apparent distress this am, calm and cooperative offering no complaints to this RN. Pt provided with breakfast tray. Continue plan of care for IPLOC
--- NOTE | 2025-03-07 07:52 | PC.NURSE ---
med rec completed with medication reconcillation hx from [facility], pt unable to verify which meds she is on
--- NOTE | 2025-03-07 08:36 | PHA.MEDREC ---
Addendum entered by Mateus Foster RPh 03/07/25 08:57: Med rec was reviewed by [facility]. Original Note: Pharmacy Consult ? Medication Reconciliation Pharmacy reviewed med rec done by nursing. Claims match what was confirmed. Pt poor historian and doesn't know what her meds are or the last time she took them.
[2025-03-07 13:04] VITALS: BP 155/85; PULSE 80; RESP 18; TEMP 36.5; O2SAT 97
[2025-03-07 13:05] VITALS: BMI 72.6
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
[2025-03-07] MEDS: Divalproex Sodium 250 MG TABLET.DR PO ×2 (14:35→21:38)
[2025-03-07] MEDS: Divalproex Sodium 500 MG TABLET.DR PO ×2 (14:35→21:38)
--- NOTE | 2025-03-07 15:09 | PC.NURSE ---
Salvador presented to the unit from the ED on a CV. She has a history of schizoaffective disorder and PTSD. Skin check and safety check completed with [facility] Gina. Salvador is primarily Bel[place]ian speaking and investigation manager utilized for the admission process. She does not have any significant PMH. She denies use of ETOH, tobacco, or drugs. She came to the ED as she had SI and was becoming aggressive with her caregiver. Salvador was settled onto the unit and meals ordered. She currently reports AVH and speaks with a little girl. Salvador currently denies SI/HI. She was cooperative with the admission process. She was placed on 15 minute checks for safety.
[2025-03-07 19:24] VITALS: BP 149/78; PULSE 81; RESP 18; TEMP 36.9; O2SAT 96
[2025-03-07] MEDS: OLANZapine 7.5 MG TABLET 15 MG PO (21:38)
[2025-03-07] MEDS: Zolpidem Tartrate 5 MG TABLET 10 MG PO (21:44)
--- NOTE | 2025-03-08 00:57 | PC.NURSE ---
TW attempted to return call to pt's caregiver, Shantel, as previously requested during brief conversation earlier in the evening. TW called the number that was provided, , at approx. [phone]; however despite 2 attempts, the phone did not ring and went directly to voicemail. There was no name identified in the recording and no beep or prompt to leave a voicemail.
[2025-03-08 08:00] VITALS: BP 120/67; PULSE 78; RESP 16; TEMP 36.5; O2SAT 94
[2025-03-08 08:01] LABS: Alanine Aminotransferase 43 U/L (0-31); Albumin Level 3.4 g/dL (3.5-5.0); Alkaline Phosphatase 97 U/L (39-117); Anion Gap 12 (12-20); Aspartate Amino Transferase 21 U/L (5-31); Bilirubin Total 0.3 mg/dL (0.0-1.0); Blood Urea Nitrogen 13 mg/dL (9-16); Calcium 8.6 mg/dL (8.4-10.2); Carbon Dioxide 25 mmol/L (22-29); Chloride 107 mmol/L (96-108); Cholesterol 178 mg/dL (<200); Creatinine Clr Calc Pharmacy 230.1; Estimated Glomerular Filt Rate > 60; Glucose Random 115 mg/dL (60-115); HDL Cholesterol 47 mg/dL (>40); LDL Cholesterol Calculated 105 mg/dL (<100); Potassium 4.4 mmol/L (3.3-5.1); Sodium 140 mmol/L (135-145); Total Protein 6.4 g/dL (6.5-8.0); Triglycerides 132 mg/dL (<150)
[2025-03-08 08:05] LABS: Estimated Average Glucose 128 mg/dL; Hemoglobin A1C 137.9227 umol/L; Hemoglobin A1c % 6.1 % (<6.0); Total Hemoglobin (HGBA1C) 3228.2837 umol/L
[2025-03-08] MEDS: Sertraline HCL 100 MG TABLET PO (08:32)
[2025-03-08] MEDS: Divalproex Sodium 500 MG TABLET.DR PO ×3 (08:32→20:19)
[2025-03-08] MEDS: Divalproex Sodium 250 MG TABLET.DR PO ×3 (08:32→20:19)
--- NOTE | 2025-03-08 13:01 | P.PNPSI_ITS ---
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 Patient reports feeling better today; pt stated, I don't hear the little girl anymore. I woke up and I don't hear her . per nursing, slept 8 hours last night. denies SI/HI/VH/AH. pt reports she would like help with information regarding homeless shelters in the area. Continues current tx plan. Medication Compliance: Yes Side effects from medications: No Attending Groups: No Mental Status Exam Mental Status Exam Narrative: Pt is alert and oriented; behavior is cooperative and calm; dressed in casual attire; mood is described as better ; eye contact appropriate; Speech is normal rate, volume and not pressured; thought process is organized; Thought content is on tx; denies SI/HI/VH/AH. Diagnostics Vital Signs (24Hr): Vital Signs - 24 hr 03/07/25 13:04 03/07/25 19:24 03/08/25 08:00 Temperature 97.7 F 98.5 F 97.7 F Pulse Rate 80 81 78 Respiratory Rate 18 18 16 Blood Pressure 155/85 H 149/78 H 120/67 Pulse Oximetry 97 96 94 Oxygen Delivery Method Room Air Room Air Room Air BMI result Body Mass Index 72.6 Labs 03/06/25 20:18 03/08/25 07:18 Labs: Laboratory Results - last 48 hr 03/06/25 03/07/25 03/08/25 20:18 01:25 07:18 WBC 7.9 RBC 4.62 Hgb 12.4 Hct 38.0 MCV 82.3 MCH 26.8 L MCHC 32.6 RDW 13.9 Plt Count 237 MPV 9.3 L Immature Gran % (Auto) 0.3 Neut % (Auto) 49.9 Lymph % (Auto) 38.9 [place] % (Auto) 7.8 Eos % (Auto) 2.8 Baso % (Auto) 0.3 Lymph # (Auto) 3.1 [place] # (Auto) 0.6 Eos # (Auto) 0.2 Baso # (Auto) 0.0 Abs Immat Gran (auto) 0.02 Absolute Neuts (auto) 3.9 Absolute Nucleated RBC 0.000 Nucleated RBC % (auto) 0.0 Sodium 142 140 Potassium 4.2 4.4 Chloride 110 H 107 Carbon Dioxide 24 25 Anion Gap 12 12 BUN 13 13 Creatinine 0.77 0.55 Estim Creat Clear Calc 164.6 230.1 Estimated GFR > 60 > 60 Random Glucose 142 H 115 Estimat Average Glucose 128 Hemoglobin A1c % 6.1 H Calcium 8.9 8.6 Total Bilirubin 0.3 0.3 AST 27 21 ALT 55 H 43 H Alkaline Phosphatase 106 97 Total Protein 6.7 6.4 L Albumin 3.7 3.4 L Triglycerides 132 Cholesterol 178 LDL Cholesterol, Calc 105 H HDL Cholesterol 47 Beta HCG, Quant < 2 Urine Color Yellow Urine Appearance Clear Urine pH 6.0 Ur Specific [place] 1.025 Urine Protein Negative Urine Glucose (UA) Negative Urine Ketones Trace Urine Blood Negative Urine Nitrite Negative Ur Leukocyte Esterase Small (1+) H Urine RBC 0-2 Urine WBC 21-50 H Ur Squamous Epith Cells 6-10 Urine Bacteria None Seen Hyaline Casts 0-2 Urine Opiates Screen Not Detected Ur Buprenorphine Scrn Not Detected Ur Oxycodone Screen Not Detected Urine Methadone Screen Not Detected Urine Fentanyl Screen Not Detected Ur Barbiturates Screen Not Detected Valproic Acid 18.3 L Ur Phencyclidine Scrn Not Detected Ur Amphetamines Screen Not Detected U Benzodiazepines Scrn Not Detected Urine Cocaine Screen Not Detected U Marijuana (THC) Screen Not Detected Ethyl Alcohol < 10 Influenza Type A (PCR) NEGATIVE Influenza Type B (PCR) NEGATIVE RSV RNA Qual (PCR) NEGATIVE SARS-CoV-2 RNA (RT-PCR) NEGATIVE Medications Medications Current Medications Acetaminophen (Acetaminophen 325 Mg Tablet) 650 mg PO Q6H PRN PRN Reason: Headache/Pain, Scale 1-10 Al Hydroxide/Mg Hydroxide (Magnesium Hydrox/Alum Hydrox 30 Ml Oral.Susp) 30 ml PO Q6H PRN PRN Reason: Heartburn/Nausea Amoxicillin (Amoxicillin 500 Mg Capsule) 500 mg PO Q12H [facility] Stop: 03/13/25 09:00 Divalproex Sodium (Divalproex Sodium 250 Mg Tablet.) 250 mg PO TID [facility] Last Admin: 03/08/25 08:32 Dose: 250 mg Divalproex Sodium (Divalproex Sodium 500 Mg Tablet.Dr) 500 mg PO TID [facility] Last Admin: 03/08/25 08:32 Dose: 500 mg Hydroxyzine HCl (Hydroxyzine Hcl 25 Mg Tablet) 25 mg PO Q6H PRN PRN Reason: mild anxiety Magnesium Hydroxide (Milk Of Magnesia 30 Ml Oral.Susp) 30 ml PO DAILY PRN PRN Reason: Constipation Nicotine (Nicotine 21 Mg Patch.Td24) 21 mg TRANSDERMA DAILY PRN PRN Reason: Nicotine Cravings Nicotine Polacrilex (Nicotine Polacrilex 2 Mg Gum) 4 mg BUCCAL Q2H PRN PRN Reason: Nicotine Cravings Olanzapine (Olanzapine 7.5 Mg Tablet) 15 mg PO BEDTIME [facility] Last Admin: 03/07/25 21:38 Dose: 15 mg Olanzapine (Olanzapine 5 Mg Tablet) 5 mg PO Q4H PRN PRN Reason: Psychosis Sertraline HCl (Sertraline Hcl 100 Mg Tablet) 100 mg PO DAILY [facility] Last Admin: 03/08/25 08:32 Dose: 100 mg Trazodone HCl (Trazodone Hcl 50 Mg Tablet) 50 mg PO BEDTIME MRX1 PRN PRN Reason: Insomnia Zolpidem Tartrate (Zolpidem Tartrate 5 Mg Tablet) 10 mg PO BEDTIME PRN PRN Reason: sleep Last Admin: 03/07/25 21:44 Dose: 10 mg Allergies Allergies Allergy/AdvReac Type Severity Reaction Status Date / Time No Known Allergies Allergy Verified 03/06/25 19:59 Assessment & Plan Assessment & Plan (1) Schizoaffective disorder: Status: Acute Code(s): F25.9 - Schizoaffective disorder, unspecified (2) PTSD (post-traumatic stress disorder): Status: Acute Code(s): F43.10 - Post-traumatic stress disorder, unspecified (3) Homelessness: Status: Acute Code(s): Z59.00 - Homelessness unspecified Plan Patient is a 29-year-old female with history of schizoaffective disorder and PTSD who self presented to ER due to suicidal ideation and psychosis secondary to medication noncompliance. Plan: CV 15 minute safety checks Continue home medications DC Risperdal Increase Zyprexa to 15mg PO bedtime obtain collateral encourage groups referral to outpatient psychiatric providers discharge planning 03/08: packing machine inspector present. Patient reports feeling better today; pt stated, I don't hear the little girl anymore. I woke up and I don't hear her . per nursing, slept 8 hours last night. denies SI/HI/VH/AH. pt reports she would like help with information regarding homeless shelters in the area. Continues current tx plan. Patient educated on: diagnosis and medication risk/benefits Reason for continued inpatient stay Substantial Risk for: med/psych decompensation Time Spent With Patient Time: Total time managing care of this patient today _20___ minutes.
[2025-03-08 20:00] VITALS: BP 127/59; PULSE 87; RESP 16; TEMP 36.7; O2SAT 95
[2025-03-08] MEDS: OLANZapine 7.5 MG TABLET 15 MG PO (20:18)
[2025-03-08] MEDS: Amoxicillin 500 MG CAPSULE PO (20:19)
[2025-03-09 07:37] VITALS: BP 105/53; PULSE 76; RESP 16; TEMP 36.4; O2SAT 94
[2025-03-09] MEDS: Divalproex Sodium 250 MG TABLET.DR PO ×3 (08:20→20:51)
[2025-03-09] MEDS: Sertraline HCL 100 MG TABLET PO (08:20)
[2025-03-09] MEDS: Amoxicillin 500 MG CAPSULE PO ×2 (08:20→20:51)
[2025-03-09] MEDS: Divalproex Sodium 500 MG TABLET.DR PO ×3 (08:20→20:51)
--- NOTE | 2025-03-09 09:19 | HO.PSYCHPN ---
Subjective Subjective Date of Service: 03/09/25 Reason For Visit: Crisis Subjective Notes: Conditional Voluntary Interim History: historical interpreter present. Patient reports feeling good today; pt stated, the little girl didn't come back . denies SI/HI/VH/AH. keeping to self. pt states she prefers to be alone in room. Will draw Valproic acid level prior to discharge. Medication Compliance: Yes Side effects from medications: No Attending Groups: No Mental Status Exam Mental Status Exam Narrative: Pt is alert and oriented; behavior is cooperative and calm; dressed in casual attire; mood is described as good ; eye contact appropriate; Speech is normal rate, volume and not pressured; thought process is organized; Thought content is on tx; denies SI/HI/VH/AH. Diagnostics Vital Signs (24Hr): Vital Signs - 24 hr 03/08/25 20:00 03/09/25 07:37 Temperature 98.0 F 97.5 F Pulse Rate 87 76 Respiratory Rate 16 16 Blood Pressure 127/59 L 105/53 L Pulse Oximetry 95 94 Oxygen Delivery Method Room Air Room Air BMI result Body Mass Index 72.6 Labs 03/06/25 20:18 03/08/25 07:18 Labs: Laboratory Results - last 48 hr 03/08/25 07:18 Sodium 140 Potassium 4.4 Chloride 107 Carbon Dioxide 25 Anion Gap 12 BUN 13 Creatinine 0.55 Estim Creat Clear Calc 230.1 Estimated GFR > 60 Random Glucose 115 Estimat Average Glucose 128 Hemoglobin A1c % 6.1 H Calcium 8.6 Total Bilirubin 0.3 AST 21 ALT 43 H Alkaline Phosphatase 97 Total Protein 6.4 L Albumin 3.4 L Triglycerides 132 Cholesterol 178 LDL Cholesterol, Calc 105 H HDL Cholesterol 47 Medications Medications Current Medications Acetaminophen (Acetaminophen 325 Mg Tablet) 650 mg PO Q6H PRN PRN Reason: Headache/Pain, Scale 1-10 Al Hydroxide/Mg Hydroxide (Magnesium Hydrox/Alum Hydrox 30 Ml Oral.Susp) 30 ml PO Q6H PRN PRN Reason: Heartburn/Nausea Amoxicillin (Amoxicillin 500 Mg Capsule) 500 mg PO Q12H [facility] Stop: 03/13/25 09:00 Last Admin: 03/09/25 08:20 Dose: 500 mg Divalproex Sodium (Divalproex Sodium 250 Mg Tablet.) 250 mg PO TID [facility] Last Admin: 03/09/25 08:20 Dose: 250 mg Divalproex Sodium (Divalproex Sodium 500 Mg Tablet.Dr) 500 mg PO TID [facility] Last Admin: 03/09/25 08:20 Dose: 500 mg Hydroxyzine HCl (Hydroxyzine Hcl 25 Mg Tablet) 25 mg PO Q6H PRN PRN Reason: mild anxiety Magnesium Hydroxide (Milk Of Magnesia 30 Ml Oral.Susp) 30 ml PO DAILY PRN PRN Reason: Constipation Nicotine (Nicotine 21 Mg Patch.Td24) 21 mg TRANSDERMA DAILY PRN PRN Reason: Nicotine Cravings Nicotine Polacrilex (Nicotine Polacrilex 2 Mg Gum) 4 mg BUCCAL Q2H PRN PRN Reason: Nicotine Cravings Olanzapine (Olanzapine 7.5 Mg Tablet) 15 mg PO BEDTIME [facility] Last Admin: 03/08/25 20:18 Dose: 15 mg Olanzapine (Olanzapine 5 Mg Tablet) 5 mg PO Q4H PRN PRN Reason: Psychosis Sertraline HCl (Sertraline Hcl 100 Mg Tablet) 100 mg PO DAILY [facility] Last Admin: 03/09/25 08:20 Dose: 100 mg Trazodone HCl (Trazodone Hcl 50 Mg Tablet) 50 mg PO BEDTIME MRX1 PRN PRN Reason: Insomnia Zolpidem Tartrate (Zolpidem Tartrate 5 Mg Tablet) 10 mg PO BEDTIME PRN PRN Reason: sleep Last Admin: 03/07/25 21:44 Dose: 10 mg Allergies Allergies Allergy/AdvReac Type Severity Reaction Status Date / Time No Known Allergies Allergy Verified 03/06/25 19:59 Assessment & Plan Assessment & Plan (1) Schizoaffective disorder: Status: Acute Code(s): F25.9 - Schizoaffective disorder, unspecified (2) PTSD (post-traumatic stress disorder): Status: Acute Code(s): F43.10 - Post-traumatic stress disorder, unspecified (3) Homelessness: Status: Acute Code(s): Z59.00 - Homelessness unspecified Plan Patient is a 29-year-old female with history of schizoaffective disorder and PTSD who self presented to ER due to suicidal ideation and psychosis secondary to medication noncompliance. Plan: CV 15 minute safety checks Continue home medications DC Risperdal Increase Zyprexa to 15mg PO bedtime obtain collateral encourage groups referral to outpatient psychiatric providers discharge planning 03/08: historical interpreter present. Patient reports feeling better today; pt stated, I don't hear the little girl anymore. I woke up and I don't hear her . per nursing, slept 8 hours last night. denies SI/HI/VH/AH. pt reports she would like help with information regarding homeless shelters in the area. Continues current tx plan. 03/09: historical interpreter present. Patient reports feeling good today; pt stated, the little girl didn't come back . denies SI/HI/VH/AH. keeping to self. pt states she prefers to be alone in room. Will draw Valproic acid level prior to discharge. Patient educated on: diagnosis, medication risk/benefits and therapeutic strategies Reason for continued inpatient stay Substantial Risk for: med/psych decompensation Time Spent With Patient Time: Total time managing care of this patient today _20___ minutes.
[2025-03-09 19:15] VITALS: BP 136/69; PULSE 75; RESP 18; TEMP 36.4; O2SAT 95
[2025-03-09] MEDS: OLANZapine 7.5 MG TABLET 15 MG PO (20:51)
[2025-03-09] MEDS: Zolpidem Tartrate 5 MG TABLET 10 MG PO (20:58)
[2025-03-10 07:52] VITALS: BP 136/79; PULSE 71; RESP 16; TEMP 36.4; O2SAT 96
[2025-03-10] MEDS: Amoxicillin 500 MG CAPSULE PO ×2 (08:19→20:33)
[2025-03-10] MEDS: Divalproex Sodium 500 MG TABLET.DR PO ×3 (08:19→20:33)
[2025-03-10] MEDS: Sertraline HCL 100 MG TABLET PO (08:19)
[2025-03-10] MEDS: Divalproex Sodium 250 MG TABLET.DR PO ×3 (08:19→20:33)
--- NOTE | 2025-03-10 08:46 | P.PNPSI_ITS ---
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 Signed 3 day notice. Pt reports she would like to be discharged d/t having a housing appointment on Monday. Patient reports feeling good today; denies SI/HI/VH/AH. Labs ordered. Pt c/o vaginal itching and discharge; ordered Diflucan 150mg PO once. Medication Compliance: Yes Side effects from medications: No Attending Groups: No Mental Status Exam Mental Status Exam Narrative: Pt is alert and oriented; behavior is cooperative and calm; dressed in casual attire; mood is described as good ; eye contact appropriate; Speech is normal rate, volume and not pressured; thought process is organized; Thought content is on discharge; denies SI/HI/VH/AH. Diagnostics Vital Signs (24Hr): Vital Signs - 24 hr 03/09/25 19:15 03/10/25 07:52 Temperature 97.5 F 97.5 F Pulse Rate 75 71 Respiratory Rate 18 16 Blood Pressure 136/69 136/79 Pulse Oximetry 95 96 Oxygen Delivery Method Room Air Room Air BMI result Body Mass Index 72.6 Labs 03/06/25 20:18 03/08/25 07:18 Medications Medications Current Medications Acetaminophen (Acetaminophen 325 Mg Tablet) 650 mg PO Q6H PRN PRN Reason: Headache/Pain, Scale 1-10 Al Hydroxide/Mg Hydroxide (Magnesium Hydrox/Alum Hydrox 30 Ml Oral.Susp) 30 ml PO Q6H PRN PRN Reason: Heartburn/Nausea Amoxicillin (Amoxicillin 500 Mg Capsule) 500 mg PO Q12H [facility] Stop: 03/13/25 09:00 Last Admin: 03/10/25 08:19 Dose: 500 mg Divalproex Sodium (Divalproex Sodium 250 Mg Tablet.) 250 mg PO TID [facility] Last Admin: 03/10/25 08:19 Dose: 250 mg Divalproex Sodium (Divalproex Sodium 500 Mg Tablet.) 500 mg PO TID [facility] Last Admin: 03/10/25 08:19 Dose: 500 mg Hydroxyzine HCl (Hydroxyzine Hcl 25 Mg Tablet) 25 mg PO Q6H PRN PRN Reason: mild anxiety Magnesium Hydroxide (Milk Of Magnesia 30 Ml Oral.Susp) 30 ml PO DAILY PRN PRN Reason: Constipation Nicotine (Nicotine 21 Mg Patch.Td24) 21 mg TRANSDERMA DAILY PRN PRN Reason: Nicotine Cravings Nicotine Polacrilex (Nicotine Polacrilex 2 Mg Gum) 4 mg BUCCAL Q2H PRN PRN Reason: Nicotine Cravings Olanzapine (Olanzapine 7.5 Mg Tablet) 15 mg PO BEDTIME [facility] Last Admin: 03/09/25 20:51 Dose: 15 mg Olanzapine (Olanzapine 5 Mg Tablet) 5 mg PO Q4H PRN PRN Reason: Psychosis Sertraline HCl (Sertraline Hcl 100 Mg Tablet) 100 mg PO DAILY [facility] Last Admin: 03/10/25 08:19 Dose: 100 mg Trazodone HCl (Trazodone Hcl 50 Mg Tablet) 50 mg PO BEDTIME MRX1 PRN PRN Reason: Insomnia Zolpidem Tartrate (Zolpidem Tartrate 5 Mg Tablet) 10 mg PO BEDTIME PRN PRN Reason: sleep Last Admin: 03/09/25 20:58 Dose: 10 mg Allergies Allergies Allergy/AdvReac Type Severity Reaction Status Date / Time No Known Allergies Allergy Verified 03/06/25 19:59 Assessment & Plan Assessment & Plan (1) Schizoaffective disorder: Status: Acute Code(s): F25.9 - Schizoaffective disorder, unspecified (2) PTSD (post-traumatic stress disorder): Status: Acute Code(s): F43.10 - Post-traumatic stress disorder, unspecified (3) Homelessness: Status: Acute Code(s): Z59.00 - Homelessness unspecified Plan Patient is a 29-year-old female with history of schizoaffective disorder and PTSD who self presented to ER due to suicidal ideation and psychosis secondary to medication noncompliance. Plan: CV 15 minute safety checks Continue home medications DC Risperdal Increase Zyprexa to 15mg PO bedtime obtain collateral encourage groups referral to outpatient psychiatric providers discharge planning 03/08: accelerator systems director present. Patient reports feeling better today; pt stated, I don't hear the little girl anymore. I woke up and I don't hear her . per nursing, slept 8 hours last night. denies SI/HI/VH/AH. pt reports she would like help with information regarding homeless shelters in the area. Continues current tx plan. 03/09: accelerator systems director present. Patient reports feeling good today; pt stated, the little girl didn't come back . denies SI/HI/VH/AH. keeping to self. pt states she prefers to be alone in room. Will draw Valproic acid level prior to discharge. 03/10: accelerator systems director present. Signed 3 day notice. Pt reports she would like to be discharged d/t having a housing appointment on Monday. Patient reports feeling good today; denies SI/HI/VH/AH. Labs ordered. Pt c/o vaginal itching and discharge; ordered Diflucan 150mg PO once. Patient educated on: diagnosis, medication risk/benefits, therapeutic strategies and medical condition Reason for continued inpatient stay Substantial Risk for: med/psych decompensation Time Spent With Patient Time: Total time managing care of this patient today _20___ minutes.
[2025-03-10] MEDS: Fluconazole 150 MG TABLET PO (17:17)
[2025-03-10 19:33] LABS: Ammonia 60 umol/L (13-55)
[2025-03-10 19:37] LABS: Valproate 67.8 mcg/mL (50.0-100.0)
[2025-03-10 19:42] LABS: Alanine Aminotransferase 44 U/L (0-31); Albumin Level 3.5 g/dL (3.5-5.0); Alkaline Phosphatase 94 U/L (39-117); Aspartate Amino Transferase 34 U/L (5-31); Bilirubin Direct < 0.2 mg/dL (0.0-0.5); Bilirubin Total 0.2 mg/dL (0.0-1.0); Total Protein 6.9 g/dL (6.5-8.0)
[2025-03-10 20:00] VITALS: BP 126/68; PULSE 76; RESP 18; TEMP 36.9; O2SAT 95
[2025-03-10] MEDS: OLANZapine 7.5 MG TABLET 15 MG PO (20:32)
[2025-03-10] MEDS: Zolpidem Tartrate 5 MG TABLET 10 MG PO (20:36)
[2025-03-11 07:54] VITALS: BP 128/60; PULSE 80; TEMP 36.4; O2SAT 94
[2025-03-11] MEDS: Amoxicillin 500 MG CAPSULE PO (08:34)
[2025-03-11] MEDS: Divalproex Sodium 250 MG TABLET.DR PO (08:34)
[2025-03-11] MEDS: Divalproex Sodium 500 MG TABLET.DR PO (08:35)
[2025-03-11] MEDS: Sertraline HCL 100 MG TABLET PO (08:35)
--- NOTE | 2025-03-11 11:43 | P.DS_ITS ---
DS: Providers Provider Date of Service: 03/11/25 Date of admission: 03/07/25 11:40 Date of discharge: 03/11/25 Primary care physician: [facility] Admitting clinician: Naomi Mccarty Attending physician on admission: Jason Hodges Attending physician on discharge: Jason Hodges Discharging clinician: Naomi Mccarty DS: Diagnosis Discharge Diagnosis (1) Schizoaffective disorder: Status: Acute (2) PTSD (post-traumatic stress disorder): Status: Acute (3) Homelessness: Status: Acute DS: Medications Discharge Medications Home Medications: Previous Rx's ?Medication ?Instructions ?Recorded divalproex 250 mg tablet,delayed 250 mg PO TID #90 tabs 02/13/25 release divalproex 500 mg tablet,delayed 500 mg PO TID 30 days #90 tabs 02/13/25 release (Depakote) sertraline 100 mg tablet 100 mg PO DAILY #90 tabs 02/13/25 zolpidem 10 mg tablet 10 mg PO BEDTIME PRN sleep #30 tabs 02/13/25 amoxicillin 500 mg capsule 500 mg PO Q12H 2 days #4 caps 03/11/25 olanzapine 15 mg tablet 15 mg PO BEDTIME 30 days #30 tabs 03/11/25 Mental Status Exam Mental Status Exam Narrative: Pt is alert and oriented; behavior is cooperative and calm; dressed in casual attire; mood is described as good ; eye contact appropriate; Speech is normal rate, volume and not pressured; thought process is organized; Thought content is on discharge; denies SI/HI/VH/AH. Data Data Completed and Pending Completed studies during hospitalization [Text1]: 03/06/25 03/07/25 03/08/25 20:18 01:25 07:18 WBC 7.9 RBC 4.62 Hgb 12.4 Hct 38.0 MCV 82.3 MCH 26.8 L MCHC 32.6 RDW 13.9 Plt Count 237 MPV 9.3 L Immature Gran % (Auto) 0.3 Neut % (Auto) 49.9 Lymph % (Auto) 38.9 Forest % (Auto) 7.8 Eos % (Auto) 2.8 Baso % (Auto) 0.3 Lymph # (Auto) 3.1 Forest # (Auto) 0.6 Eos # (Auto) 0.2 Baso # (Auto) 0.0 Abs Immat Gran (auto) 0.02 Absolute Neuts (auto) 3.9 Absolute Nucleated RBC 0.000 Nucleated RBC % (auto) 0.0 Sodium 142 140 Potassium 4.2 4.4 Chloride 110 H 107 Carbon Dioxide 24 25 Anion Gap 12 12 BUN 13 13 Creatinine 0.77 0.55 Estim Creat Clear Calc 164.6 230.1 Estimated GFR > 60 > 60 Random Glucose 142 H 115 Estimat Average Glucose 128 Hemoglobin A1c % 6.1 H Calcium 8.9 8.6 Total Bilirubin 0.3 0.3 Direct Bilirubin AST 27 21 ALT 55 H 43 H Alkaline Phosphatase 106 97 Ammonia Total Protein 6.7 6.4 L Albumin 3.7 3.4 L Triglycerides 132 Cholesterol 178 LDL Cholesterol, Calc 105 H HDL Cholesterol 47 Beta HCG, Quant < 2 Urine Color Yellow Urine Appearance Clear Urine pH 6.0 Ur Specific [place] 1.025 Urine Protein Negative Urine Glucose (UA) Negative Urine Ketones Trace Urine Blood Negative Urine Nitrite Negative Ur Leukocyte Esterase Small (1+) H Urine RBC 0-2 Urine WBC 21-50 H Ur Squamous Epith Cells 6-10 Urine Bacteria None Seen Hyaline Casts 0-2 Urine Opiates Screen Not Detected Ur Buprenorphine Scrn Not Detected Ur Oxycodone Screen Not Detected Urine Methadone Screen Not Detected Urine Fentanyl Screen Not Detected Ur Barbiturates Screen Not Detected Valproic Acid 18.3 L Ur Phencyclidine Scrn Not Detected Ur Amphetamines Screen Not Detected U Benzodiazepines Scrn Not Detected Urine Cocaine Screen Not Detected U Marijuana (THC) Screen Not Detected Ethyl Alcohol < 10 Influenza Type A (PCR) NEGATIVE Influenza Type B (PCR) NEGATIVE RSV RNA Qual (PCR) NEGATIVE SARS-CoV-2 RNA (RT-PCR) NEGATIVE 03/10/25 19:01 WBC RBC Hgb Hct MCV MCH MCHC RDW Plt Count MPV Immature Gran % (Auto) Neut % (Auto) Lymph % (Auto) [place] % (Auto) Eos % (Auto) Baso % (Auto) Lymph # (Auto) [place] # (Auto) Eos # (Auto) Baso # (Auto) Abs Immat Gran (auto) Absolute Neuts (auto) Absolute Nucleated RBC Nucleated RBC % (auto) Sodium Potassium Chloride Carbon Dioxide Anion Gap BUN Creatinine Estim Creat Clear Calc Estimated GFR Random Glucose Estimat Average Glucose Hemoglobin A1c % Calcium Total Bilirubin 0.2 Direct Bilirubin < 0.2 AST 34 H ALT 44 H Alkaline Phosphatase 94 Ammonia 60 H Total Protein 6.9 Albumin 3.5 Triglycerides Cholesterol LDL Cholesterol, Calc HDL Cholesterol Beta HCG, Quant Urine Color Urine Appearance Urine pH Ur Specific [place] Urine Protein Urine Glucose (UA) Urine Ketones Urine Blood Urine Nitrite Ur Leukocyte Esterase Urine RBC Urine WBC Ur Squamous Epith Cells Urine Bacteria Hyaline Casts Urine Opiates Screen Ur Buprenorphine Scrn Ur Oxycodone Screen Urine Methadone Screen Urine Fentanyl Screen Ur Barbiturates Screen Valproic Acid 67.8 Ur Phencyclidine Scrn Ur Amphetamines Screen U Benzodiazepines Scrn Urine Cocaine Screen U Marijuana (THC) Screen Ethyl Alcohol Influenza Type A (PCR) Influenza Type B (PCR) RSV RNA Qual (PCR) SARS-CoV-2 RNA (RT-PCR) 03/07/25 Unknown Urine clean catch - Clean Catch Midstream Urine Culture - Final Strep agalactiae (Grp B) DS: Summary Hospital Course Hospital Course: Patient is a 29-year-old female with history of schizoaffective disorder and PTSD who self presented to ER due to suicidal ideation and psychosis secondary to medication noncompliance. Per crisis report, patient presented to ER with her golf ball winder due to suicidal ideation and psychosis. Patient had became aggressive with her golf ball winder and reports being told by the little girl to darrian Rasmussen . Patient reports suicidal ideation with a plan to overdose on her medications due to having nothing to live for and no one to support her . Patient reports the little girl as bad and someone who is always around and does not leave her alone . Patient reports she is here alone, homeless; with all of her family in [place]. Patient has been off of her psychiatric medications for an undisclosed amount of time. She reports experiencing increased auditory and visual hallucinations. Patient was observed covering her ears and pulling her hair in distress as she tells the little girl to shut up . denies HI. Patient reports she is currently homeless and has been sleeping in her brother's car; she reports poor sleep. Patient was sent to live with a friend of her brothers who resides in [place] in August 2024 and was reportedly kicked out of the [place] w[facility]ff's home last week and has since been staying in her brother's car that her golf ball winder drives. Collateral was obtained from patient's golf ball winder(Valery) who reports patient has not been medication compliant and has been decompensating. Patient reports her PCP is currently prescribing her psychiatric medications. During admission assessment, patient presents alert and oriented x3. Calm and c ooperative. communications department chairperson present. Patient reports feeling depressed ; patient stated, Valery brought me to the hospital because I hear the girl. I was going to hit her but I didn't because she is good to me. But the girl told me to . Patient reports she did have suicidal ideation prior to admission but denies at this time. Patient stated, Valery has the pills so I can't do that. The bad girl makes me feel bad and suicidal . Patient observed responding to internal stimuli; during interview patient would look to the right and say, bad, bad, bad . Patient denies SI/HI. Patient reports she has been medication compliant however, her valproic acid level on 03/06/2025 was 18.3. Plan: CV 15 minute safety checks Continue home medications DC Risperdal Increase Zyprexa to 15mg PO bedtime obtain collateral encourage groups referral to outpatient psychiatric providers discharge planning communications department chairperson present. Patient reports feeling better today; pt stated, I don't hear the little girl anymore. I woke up and I don't hear her . per nursing, slept 8 hours last night. denies SI/HI/VH/AH. pt reports she would like help with information regarding homeless shelters in the area. Continues current tx plan. communications department chairperson present. Patient reports feeling good today; pt stated, the little girl didn't come back . denies SI/HI/VH/AH. keeping to self. pt states she prefers to be alone in room. Will draw Valproic acid level prior to discharge. communications department chairperson present. Signed 3 day notice. Pt reports she would like to be discharged d/t having a housing appointment on Monday. Patient reports feeling good today; denies SI/HI/VH/AH. Labs ordered. Pt c/o vaginal itching and discharge; ordered Diflucan 150mg PO once. Patient reports feeling good ; looking forward to discharge. Patient reports she plans on attending her housing appointment and sleep study tomorrow. denies SI/HI/VH/AH. Valproic acid level 67.8 on 03/10/25. Pt plans on following up with her outpatient providers. Status at Discharge Cognitive/behavioral status at discharge: Patient has insight and demonstrates good judgment in terms of wanting to pursue treatment. Patient has a safety plan that includes presenting to the closest ER or calling 911 if feeling unsafe. Functional status at discharge: independent ambulation Overall status at discharge: patient is back to baseline Time Spent with Patient Time attestation: Total time managing care of this patient today _20___ minutes. Time spent: Less than 30 minutes Discharge Plan Discharge Anticipated Discharge Date/Time: 03/11/25 11:37 Patient Disposition: Home, Self-Care Discharge Diagnosis: Schizoaffective d/o, PTSD Referrals: [facility] [Primary Care Provider] - 1 Week (03-11-25 Please contact your primary care provider to schedule your follow up appt within 7-10 days of discharge. No release on file.) Discharge Medications: New amoxicillin 500 mg Capsule 500 mg PO Q12H 2 Days Qty: 4 0RF olanzapine 15 mg tablet 15 mg PO BEDTIME 30 Days Qty: 30 0RF Continued divalproex [Depakote] 500 mg tablet,delayed release (DR/EC) 500 mg PO TID 30 Days Qty: 90 0RF divalproex 250 mg tablet,delayed release (DR/EC) 250 mg PO TID Qty: 90 0RF sertraline 100 mg tablet 100 mg PO DAILY Qty: 90 1RF zolpidem 10 mg tablet 10 mg PO BEDTIME PRN (Reason: sleep) Qty: 30 0RF Discontinued olanzapine 10 mg tablet 10 mg PO BEDTIME Qty: 90 0RF risperidone 2 mg tablet 2 mg PO DAILY Qty: 90 0RF Discharge Orders: Discharge Order (Routine); Ordered 03/11/25 Ordered By: Naomi Mccarty Diet: Regular diet Activity on Discharge: As tolerated Stand Alone Forms: Patient Portal Discharge page, Community Support Print Language: Latvian Care Plan Goals: Maintain mood and safe behaviors Take medications as prescribed Practice coping skills Continue with outpatient providers and reach out to them as needed Health Concerns: Mood stability and behaviors Plan of Treatment: Follow up with your PCP, psychiatric provider and other outpatient providers regarding above concerns Take medications as prescribed Assessment: Patient has insight and demonstrates good judgment in terms of wanting to pursue treatment. Patient has a safety plan that includes presenting to the closest ER or calling 911 if feeling unsafe. Discharge Date/Time: 03/11/25 12:00
== END 2025-03-11 12:00 | disposition home or self-care (01) | DRG 750 ==
LOC: HO.ED 03-07 07:06 → HO.PADLT16 03-07 11:40
PROVIDERS: Emergency Medicine Emergency Medical Services; Physician Assistant Medical; Admitting Provider Registered Nurse; Emergency Provider Emergency Medicine; Responsible Provider Registered Nurse; Visit Provider Psychiatry & Neurology Psychiatry
DX: F25.9 Schizoaffective disorder, unspecified (principal); Z68.45 Body mass index [BMI] 70 or greater, adult; R45.851 Suicidal ideations; E66.01 Morbid (severe) obesity due to excess calories; Z71.3 Dietary counseling and surveillance; G40.909 Epilepsy, unspecified, not intractable, without status epilepticus; Z59.01 Sheltered homelessness; F43.10 Post-traumatic stress disorder, unspecified; Z20.822 Contact with and (suspected) exposure to COVID-19; Z79.899 Other long term (current) drug therapy
CPT/HCPCS: 0241U; 36415; 80053; 80061; 80076; 80164; 80307; 81001; 82140; 83036; 84702; 85025; 87086; 87147; 93005; 99285; S9485

== ENCOUNTER → 2025-03-06 20:07 | Outpatient (BNV) | payer MEDICAID, SELFPAY | PROVIDERS: Admitting Provider Registered Nurse; Emergency Provider Emergency Medicine; Visit Provider Internal Medicine Cardiovascular Disease | DX: Z13.6 Encounter for screening for cardiovascular disorders (principal) | CPT/HCPCS: 93010 ==

== ENCOUNTER → 2025-03-07 11:40 | Outpatient (BNV) | payer MEDICAID, SELFPAY | PROVIDERS: Admitting Provider Registered Nurse; Emergency Provider Emergency Medicine; Responsible Provider Registered Nurse; Visit Provider Registered Nurse | DX: F25.9 Schizoaffective disorder, unspecified (principal); F43.10 Post-traumatic stress disorder, unspecified; Z59.00 Homelessness unspecified | CPT/HCPCS: 90792; 99232 ==

== ENCOUNTER 2025-04-04 11:23 | Outpatient (AMB) | payer MEDICAID, SELFPAY ==
[2025-04-04 11:35] VITALS: BP 140/92; PULSE 88; TEMP 36.3; O2SAT 97; BMI 60.4
--- NOTE | 2025-04-04 11:35 | MHC.PC.OV ---
Vital Signs 04/04/25 11:35 Height 5 ft 6.93 in Weight 385 lb 2 oz BMI 60.4 BP 140/92 H Blood Pressure Location Rt brachial Position Sitting Pulse 88 Pulse Source Pulse Oximeter Temp 97.3 F Temp Source Temporal Artery Scan Pulse Oximetry (%) 97 Oxygen Delivery Method Room Air Intake Visit Reasons: [facility] 03/11/25 for schizophrenic disorder and ptsd Cashier Assistant Required: Yes Cashier Assistant Language: Japanese Accompanied by: Friend Allergies No Known Allergies Allergy (Verified 04/04/25 11:36) Medication List - Last Reconciled 04/04/25 by Fanny Marlow NP divalproex (Depakote) 500 mg PO TID 30 days divalproex 250 mg PO TID olanzapine 15 mg PO BEDTIME 30 days sertraline 100 mg PO DAILY zolpidem 10 mg PO BEDTIME PRN Tobacco use date assessed: 03/03/25 Dental Screening Dental Screen Date: 01/03/25 HPI HPI Comments History of Present Illness Details 30 y/o Female patient who presents to the clinic today for HDF. Pmhx of Schizoaffective disorder and PTSD. She was admitted at [facility] on 03/07 - 03/11 for an evaluation of suicidal ideation and psychosis secondary to medication noncompliance. Today Denies SA or SI. DC'd Risperdal and Increase Zyprexa to 15mg PO bedtime by Hospital Psych. Patient asking for Medication refills - will defer to PCP on this. [facility] Surgical History History of appendectomy Family History Mother Uterine cancer Other Mental health disorder Social History Household Members: Caregiver Housing: Apartment Do you presently have visiting nurse or other home services: No Alcohol intake: never Patient Tobacco Use Status: Never used Tobacco e-Cigarette/Vaping Use: Never Used Second Hand Smoke Exposure: No service: No Current occupational status: disabled Sexual orientation: Straight/Heterosexual Cognitive needs: No Hearing needs: No Vision needs: Yes (Glasses) Questionnaire Thrive Questionnaire Date Thrive assessed: 11/05/24 I am a: Patient What is your living situation today?: I do not have a steady places to live I am temporarily staying with others Within the past 12 months, did the food you bought not last and you didn't have the money to get more?: Sometimes True Within the past 12 months, did you worry whether your food would run out before you got money to buy more?: Sometimes True Do you have trouble paying for medicines?: Yes Do you have trouble getting transportation to medical appointments?: Yes Do you have trouble paying your heating and electricity bill?: Yes Do you have trouble taking care of your child, family member or friend?: I choose not to answer this question Do you have trouble with day-to-day activities such as bathing, preparing meals, shopping, managing finances, etc.?: No Are you currently unemployed and looking for a job?: Yes Are you interested in more education?: Yes THRIVE Score: 5 TAMIKA-7 AMB Questionnaire TAMIKA-7 Date TAMIKA - 7 assessed: 01/03/25 Source: Developed by Drs. Parag Monroe, Mary Carmen Jacobson, Anuj Rhoades and colleagues, with an educational tracie from [employer]. Review of Systems Const All systems reviewed & are unremarkable except as noted in HPI and below Physical exam (Primary Care) Vital Signs: Last Vital Signs Temp 97.3 F 04/04/25 11:35 Pulse 88 04/04/25 11:35 BP 140/92 H 04/04/25 11:35 Pulse Ox 97 04/04/25 11:35 Oxygen Delivery Method Room Air 04/04/25 11:35 BMI result Body Mass Index 60.4 Tobacco/Smoking Status: Tobacco use Status Tobacco use date assessed 03/03/25 04/04/25 11:36 Patient Tobacco Use Status Never used Tobacco 04/04/25 11:36 e-Cigarette/Vaping Use Never Used 04/04/25 11:36 Thrive Assessment: Date of Thrive Assessment Date Thrive assessed 11/05/24 04/04/25 11:36 Const General: comfortable and no acute distress Nutritional Appearance: obese morbidly obese Orientation/consciousness: patient oriented x3 Limitations: ambulation with walker Resp Effort & Inspection: normal respiratory effort Auscultation: clear to auscultation bilaterally Cardio Heart sounds: S1 normal heart sound present and S2 normal heart sound present Neuro General: patient oriented x3, gait normal and moves all extremities Gait exam (Neuro): Assisted gait required Gait assisted method: walker Psych Speech and movement: Normal speech and movement present Coding Level of Care Code Est Pt Level 4 (47664) Diagnoses Schizophrenia, unspecified type F20.9 Schizophrenia type: unspecified Time Spent (min) 20 Assessment & Plan Assessment & Plan (1) Schizophrenia: Code(s): F20.9 - Schizophrenia, unspecified Category: Medical Qualifiers: Schizophrenia type: unspecified Qualified Code(s): F20.9 - Schizophrenia, unspecified Plan: Managed on medications. Dc'd Risperidone and Olanzapine was increased to 15 mg.
--- OUTSIDE RECORDS SUMMARY | 2025-04-04 11:46 | XMS_ITS | Clinical Summary ---
Author Organization [employer] Address [address] [place] [address] Care Team Providers Care Lining Stitcher Name Role Phone Unavailable Primary Care Provider [...] 1993 HIV Screening 1993 SDOH Screening 1993 Disability Screening 1993 Alcohol/Substance Use Screening 2005 Tobacco Screening 2005 Family Planning (PISQ) 2008 Hepatitis C Screening 2011 DTaP/Tdap/Td Vaccines (1 - Tdap) 2012 Hepatitis B Vaccines (1 of 3 - 19+ 3-dose series) 2012 Pap Smear 2014 Cervical Cancer Screening 2023 HPV/Cotest 2023 COVID-19 Vaccine ( - 2023-2 5 season) 2024 Influenza Vaccine (Season Ended) 2025 Zoster Vaccines (1 of 2) 2043 RSV [...] Years) and At-Risk Patients (6 to 49) Years Aged Out No longer eligible b ased on patient's age to complete this topic RSV under 20 months Aged Out No longe r eligible based on patient's age to complete this topic Rotavirus Vaccines Aged Out No longer eligible based on patient's age to complete this topic [place] [place] [address] STANDARD
== END 2025-04-04 11:54 | disposition home or self-care (01) ==
LOC: HO.HMCH 11:24
PROVIDERS: Visit Provider Nurse Practitioner Family
DX: F20.9 Schizophrenia, unspecified (principal)

== ENCOUNTER → 2025-04-04 11:23 | Outpatient (BNVA) | payer MEDICAID, SELFPAY | PROVIDERS: Visit Provider Nurse Practitioner Family | DX: F25.9 Schizoaffective disorder, unspecified (principal); F43.10 Post-traumatic stress disorder, unspecified; Z79.899 Other long term (current) drug therapy | CPT/HCPCS: 99212 ==

== ENCOUNTER 2025-06-03 10:21 | Outpatient (AMB) | payer MEDICAID, SELFPAY ==
--- NOTE | 2025-06-03 10:53 | MHC.PC.OV ---
Vital Signs 06/03/25 10:55 Height 5 ft 6.93 in Weight 373 lb 4 oz BMI 58.6 BP 116/70 Blood Pressure Location Lt brachial Position Sitting Pulse 110 H Pulse Source Pulse Oximeter Pulse Oximetry (%) 96 Oxygen Delivery Method Room Air Intake Visit Reasons: f/u seizure d/o Natural Gas Treating Unit Operator Required: Yes Natural Gas Treating Unit Operator Language: Yi Accompanied by: Self / Same As Patient Allergies No Known Allergies Allergy (Verified 06/03/25 11:07) Medication List - Last Reconciled 06/03/25 by Edna Garcia PA-C divalproex (Depakote) 500 mg PO TID 30 days divalproex 250 mg PO TID olanzapine 15 mg PO BEDTIME 30 days sertraline 100 mg PO DAILY zolpidem 10 mg PO BEDTIME PRN Tobacco use date assessed: 06/03/25 Dental Screening Dental Screen Date: 06/03/25 Did you have a dental visit in the last 12 months?: No Did you have a dental problem in the last 6 months where you did not have access to dental care?: No Was dental information given to patient?: No HPI f/u seizure d/o HPI Details 30-year-old female with past medical history of bipolar disorder, schizophrenia, seizure disorder, PTSD and schizoaffective disorder last seen 03/2025 by nurse practitioner coming in for follow up. virtualization architect Shantanu [id number] was used for the duration of this visit. Patient tells us today she has been doing well on the olanzapine increase dose. She continues to see Neurology and was last seen in March in his unclear if there is a scheduled follow up. She has been seizure-free since her last visit. She has no acute concerns today aside from her weight. She feels her weight has been increasing and is unable to exercise without supervision . [facility] Surgical History History of appendectomy Family History Mother Uterine cancer Other Mental health disorder Social History Household Members: Caregiver Housing: Apartment Do you presently have visiting nurse or other home services: No Alcohol intake: never Patient Tobacco Use Status: Never used Tobacco e-Cigarette/Vaping Use: Never Used Second Hand Smoke Exposure: No service: No Current occupational status: disabled Sexual orientation: Straight/Heterosexual Cognitive needs: No Hearing needs: No Vision needs: Yes (Glasses) Questionnaire Thrive Questionnaire Date Thrive assessed: 06/03/25 I am a: Patient What is your living situation today?: I do not have a steady places to live I am temporarily staying with others Within the past 12 months, did the food you bought not last and you didn't have the money to get more?: Sometimes True Within the past 12 months, did you worry whether your food would run out before you got money to buy more?: Sometimes True Do you have trouble paying for medicines?: Yes Do you have trouble getting transportation to medical appointments?: Yes Do you have trouble paying your heating and electricity bill?: Yes Do you have trouble taking care of your child, family member or friend?: I choose not to answer this question Do you have trouble with day-to-day activities such as bathing, preparing meals, shopping, managing finances, etc.?: No Are you currently unemployed and looking for a job?: Yes Are you interested in more education?: Yes THRIVE Score: 5 TAMIKA-7 AMB Questionnaire TAMIKA-7 Date ATMIKA - 7 assessed: 06/03/25 Source: Developed by Drs. Parag Monroe, Mary Carmen Jacobson, Anuj Rhoades and colleagues, with an educational tracie from [employer]. Review of Systems Const Denies body aches, Denies chills, Denies fever(s), Denies headache(s) and Denies poor appetite Eyes Reports no additional complaints ENT Denies dizziness and Denies headache(s) Card Denies chest pain, Denies irregular heart rhythm, Denies lightheadedness and Denies dyspnea Resp Denies dyspnea GI Denies abdominal pain, Denies constipation, Denies diarrhea, Denies nausea and Denies vomiting Skin/Breast Reports system reviewed and no additional complaints, except as documented Neuro Denies dizziness and Denies headache(s) Psych Reports no additional complaints Physical exam (Primary Care) Vital Signs: Last Vital Signs Pulse 110 H 06/03/25 10:55 BP 116/70 06/03/25 10:55 Pulse Ox 96 06/03/25 10:55 Oxygen Delivery Method Room Air 06/03/25 10:55 BMI result Body Mass Index 58.6 Tobacco/Smoking Status: Tobacco use Status Tobacco use date assessed 06/03/25 06/03/25 11:03 Patient Tobacco Use Status Never used Tobacco 06/03/25 11:03 e-Cigarette/Vaping Use Never Used 06/03/25 11:03 Thrive Assessment: Date of Thrive Assessment Date Thrive assessed 06/03/25 06/03/25 11:03 Const General: cooperative, healthy appearing, comfortable and no acute distress Orientation/consciousness: patient oriented x3 HENMT Head: Yes normocephalic Ears: hearing grossly normal bilaterally General nose exam: Normal external nose present Eyes General: appearance normal, both eyes and all related structures Conjunctivae: conjunctivae normal Neck Neck: Yes full ROM and Yes no lymphadenopathy Resp Effort & Inspection: normal respiratory effort Auscultation: clear to auscultation bilaterally, no crackles, no rales, no rhonchi and no wheezes Cardio Rate: regular rate Rhythm: regular rhythm Skin General skin exam: no rashes or lesions noted Neuro General: patient oriented x3 Gait exam (Neuro): Normal gait present Extrem General: Yes normal to inspection, Yes full ROM and No edema Psych Affect: normal affect Attitude: cooperative Insight: Good insight present (Psych) Judgement: Good judgement present (Psych) Coding Level of Care Code Est Pt Level 3 (23255) Diagnoses Seizure disorder G40.909 Schizophrenia, unspecified type F20.9 Schizophrenia type: unspecified Bipolar disorder F31.9 Hypersomnolence G47.10 Morbid obesity with BMI of 50.0-59.9, adult E66.01; Z68.43 Homelessness Z59.00 Assessment & Plan Assessment & Plan (1) Seizure disorder: Code(s): G40.909 - Epilepsy, unspecified, not intractable, without status epilepticus Category: Medical Plan: She has been seeing Neurology and last seen in March. PLan to request these notes. She will continue on with Neurology and on current medication. She has been seizure free since last visit. (2) Schizophrenia: Code(s): F20.9 - Schizophrenia, unspecified Category: Medical Qualifiers: Schizophrenia type: unspecified Qualified Code(s): F20.9 - Schizophrenia, unspecified Plan: Patient on multiple psych medications reports feeling fatigued however they do manage her symptoms well. Referral was placed to psychiatrist today at [facility]. (3) Bipolar disorder: Code(s): F31.9 - Bipolar disorder, unspecified Category: Medical Plan: See above plan for schizophrenia. Patient is doing well on sertraline (4) Hypersomnolence: Code(s): G47.10 - Hypersomnia, unspecified Category: Medical Plan: Reminded patient about scheduling sleep study and updated the order. (5) Morbid obesity with BMI of 50.0-59.9, adult: Code(s): E66.01 - Morbid (severe) obesity due to excess calories; Z68.43 - Body mass index [BMI] 50.0-59.9, adult Category: Medical Plan: Healthy diet and regular exercise is encouraged. She is requesting weight management clinic today and referral was placed. (6) Homelessness: Code(s): Z59.00 - Homelessness unspecified Category: Social Hx Plan: Patient is currently enrolled in navigation services however I discussed with nursing navigator Lexii were able to see the patient today and discuss housing as well as mental health services. She is currently working with community navigation with services for food, housing and mental health. She will follow up with myself for navigation as needed for this concern Plan This note was constructed using voice recognition software. While every effort has been made to ensure accuracy and drapery worker, still areas may have been included sometimes these areas may affect the content or meeting of the given symptoms. Total time spent caring for the patient today was 20 minutes. This includes time spent before the visit reviewing the chart, time spent during the visit, and time spent after the visit and documentation. Orders: Orders RT home sleep study Today G47.10 - Hypersomnia, unspecified Referrals Psychiatry Referral F20.9 - Schizophrenia, unspecified, F25.9 - Schizoaffective disorder, unspecified, F31.9 - Bipolar disorder, unspecified, F43.10 - Post-traumatic stress disorder, unspecified Medical Weight Management Referral E66.01 - Morbid (severe) obesity due to excess calories, Z68.43 - Body mass index [BMI] 50.0-59.9, adult
[2025-06-03 10:55] VITALS: BP 116/70; PULSE 110; O2SAT 96; BMI 58.6
== END 2025-06-03 12:12 | disposition home or self-care (01) ==
LOC: HO.HMCH 10:22
DX: G40.909 Epilepsy, unspecified, not intractable, without status epilepticus (principal); F20.9 Schizophrenia, unspecified; E66.01 Morbid (severe) obesity due to excess calories; Z68.43 Body mass index [BMI] 50.0-59.9, adult; F31.9 Bipolar disorder, unspecified; G47.10 Hypersomnia, unspecified; Z59.00 Homelessness unspecified

== ENCOUNTER → 2025-06-03 10:21 | Outpatient (BNVA) | payer MEDICAID, SELFPAY | DX: G40.909 Epilepsy, unspecified, not intractable, without status epilepticus (principal); F20.9 Schizophrenia, unspecified; F31.9 Bipolar disorder, unspecified; F43.10 Post-traumatic stress disorder, unspecified; G47.10 Hypersomnia, unspecified; K59.00 Constipation, unspecified; E66.01 Morbid (severe) obesity due to excess calories; Z68.43 Body mass index [BMI] 50.0-59.9, adult | CPT/HCPCS: 99212 ==

== ENCOUNTER → 2025-08-25 09:29 | Outpatient (REF) | payer MEDICAID, SELFPAY ==
--- OUTSIDE RECORDS SUMMARY | 2025-08-25 10:35 | XMS_ITS | Clinical Summary ---
Author Organization [employer] Address [address] [facility] [address] [place] [address] Care Team Providers Care Wallpaper Inspector Name Role Phone Unavailable Primary Care Provider [...] Tobacco Screening 2005 Family Planning (PISQ) 2008 HPV Vaccines (1 - 3-dose series) 2008 Hepatitis C Screening 2011 DTaP/Tdap/Td Vaccines (1 - Tdap) 2012 Hepatitis B Vaccines (1 of 3 - 19+ 3-dose series) 2012 Pap Smear 2014 Cervical Cancer Screening 2023 HPV/Cotest 2023 COVID-19 Vaccine (1 - 2023-2 5 season) 2025 Influenza Vaccine (#1) 2025 Zoster Vaccines (1 of 2) 2043 [...]
== END ==
LOC: HO.SL 09:29
DX: G47.33 Obstructive sleep apnea (adult) (pediatric) (principal); G47.10 Hypersomnia, unspecified; R06.83 Snoring; R40.0 Somnolence
CPT/HCPCS: 95806

== ENCOUNTER → 2025-08-25 09:44 | Outpatient (BNV) | payer MEDICAID, SELFPAY | PROVIDERS: Visit Provider Internal Medicine | DX: G47.33 Obstructive sleep apnea (adult) (pediatric) (principal) | CPT/HCPCS: 95806 ==

== ENCOUNTER 2025-09-04 09:59 | Outpatient (AMB) | payer MEDICAID, SELFPAY ==
--- NOTE | 2025-06-18 11:32 | MHC.PC.OV ---
Intake Visit Reasons: 3 mo f/u seizure disorder Allergies No Known Allergies Allergy (Verified 06/03/25 11:07) Tobacco use date assessed: 06/03/25 Dental Screening Dental Screen Date: 06/03/25 [facility] Surgical History History of appendectomy Family History Mother Uterine cancer Other Mental health disorder Social History Household Members: Caregiver Housing: Apartment Do you presently have visiting nurse or other home services: No Alcohol intake: never Patient Tobacco Use Status: Never used Tobacco e-Cigarette/Vaping Use: Never Used Second Hand Smoke Exposure: No service: No Current occupational status: disabled Sexual orientation: Straight/Heterosexual Cognitive needs: No Hearing needs: No Vision needs: Yes (Glasses) Questionnaire Thrive Questionnaire Date Thrive assessed: 06/03/25 TAMIKA-7 AMB Questionnaire TAMIKA-7 Date TAMIKA - 7 assessed: 06/03/25 Source: Developed by Drs. Parag Monroe, Mary Carmen Jacobson, Anuj Rhoades and colleagues, with an educational tracie from [employer]. Physical exam (Primary Care) Tobacco/Smoking Status: Tobacco use Status Tobacco use date assessed 06/03/25 06/03/25 11:03 Patient Tobacco Use Status Never used Tobacco 06/03/25 11:03 e-Cigarette/Vaping Use Never Used 06/03/25 11:03 Thrive Assessment: Date of Thrive Assessment Date Thrive assessed 06/03/25 06/03/25 11:03 Coding
[2025-09-04 10:07] VITALS: BP 140/90; PULSE 57; TEMP 36.7; O2SAT 97; BMI 59.3
--- NOTE | 2025-09-04 10:07 | A.OFFPC_ITS ---
Vital Signs 09/04/25 10:07 Height 5 ft 6.93 in Weight 378 lb BMI 59.3 BP 140/90 H Blood Pressure Location Lt brachial Position Sitting Pulse 57 Pulse Source Pulse Oximeter Temp 98.1 F Temp Source Temporal Artery Scan Pulse Oximetry (%) 97 Oxygen Delivery Method Room Air Intake Visit Reasons: 3 mo f/u seizure disorder Customer Care Representative Required: Yes Customer Care Representative Language: Japanese Accompanied by: Self / Same As Patient Allergies No Known Allergies Allergy (Verified 09/04/25 10:15) Medication List - Last Reconciled 09/04/25 by Edna Garcia PA-C divalproex (Depakote) 500 mg PO TID 90 days divalproex 250 mg PO TID 90 days olanzapine 15 mg PO BEDTIME sertraline 100 mg PO DAILY zolpidem 10 mg PO BEDTIME PRN Tobacco use date assessed: 06/03/25 Dental Screening Dental Screen Date: 06/03/25 Did you have a dental visit in the last 12 months?: No Did you have a dental problem in the last 6 months where you did not have access to dental care?: No Was dental information given to patient?: No HPI 3 mo f/u seizure disorder HPI Details 30-year-old female with past medical his tory of bipolar disorder, schizophrenia, seizure disorder, PTSD and schizoaffective disorder last seen 05/2025 coming in for follow up. global head advertiser solutions [id number] Rolando was used for the duration of this visit. Presenting for follow-up of multiple chronic conditions. The patient has experienced approximately two seizures since the last visit. She did not seek emergency medical care at that time and has not yet followed up with her neurologist. Weight gain has been a concern, which the neurologist suggested may be related to medications. This has led to low self-esteem, crying spells, and a depressive mood, with the patient comparing current appearance to old photos. For the past several months, the patient has had constant hand tremors. The patient reports swelling and requires compression socks for circulation. The patient uses a walker for mobility but recently lost it. A prior referral to a psychiatrist has not resulted in an appointment, as the patient has not received a call back. [facility] Surgical History History of appendectomy Family History Mother Uterine cancer Other Mental health disorder Social History Household Members: Caregiver Housing: Apartment Do you presently have visiting nurse or other home services: No Alcohol intake: never Patient Tobacco Use Status: Never used Tobacco e-Cigarette/Vaping Use: Never Used Second Hand Smoke Exposure: No service: No Current occupational status: disabled Sexual orientation: Straight/Heterosexual Cognitive needs: No Hearing needs: No Vision needs: Yes (Glasses) Questionnaire PHQ-9 Over the last 2 weeks, how often have you been bothered by any of the following problems? 1. Little interest or pleasure in doing things: nearly every day 2. Feeling down, depressed, or hopeless: nearly every day 3. Trouble falling or staying asleep, or sleeping too much: nearly every day 4. Feeling tired or having little energy: nearly every day 5. Poor appetite or overeating: more than half the days 6. Feeling bad about yourself - or that you are a failure or have let yourself or your family down: nearly every day 7. Trouble concentrating on things, such as reading the newspaper or watching television: nearly every day 8. Moving or speaking so slowly that other people could have noticed. Or the opposite - being so fidgety or restless that you have been moving around a lot more than usual: nearly every day 9. Thoughts that you would be better off or of hurting yourself in some way: several days Total score: 24 Depression Screening Interpretation: Positive Depression Screening Done: Yes Source: Developed by Drs. Parag Monroe, Mary Carmen Jacobson, Anuj Rhoades and colleagues, with an educational tracie from [employer]. Thrive Questionnaire Date Thrive assessed: 11/05/24 I am a: Patient What is your living situation today?: I do not have a steady places to live I am temporarily staying with others Within the past 12 months, did the food you bought not last and you didn't have the money to get more?: Sometimes True Within the past 12 months, did you worry whether your food would run out before you got money to buy more?: Sometimes True Do you have trouble paying for medicines?: Yes Do you have trouble getting transportation to medical appointments?: Yes Do you have trouble paying your heating and electricity bill?: Yes Do you have trouble taking care of your child, family member or friend?: I choose not to answer this question Do you have trouble with day-to-day activities such as bathing, preparing meals, shopping, managing finances, etc.?: No Are you currently unemployed and looking for a job?: Yes Are you interested in more education?: Yes THRIVE Score: 5 AUDIT C Alcohol Use Questionnaire (AUDIT-C) 1. How often do you have a drink containing alcohol?: Never Total Score: 0 TAMIKA-7 AMB Questionnaire TAMIKA-7 Date TAMIKA - 7 assessed: 06/03/25 Source: Developed by Drs. Parag Monroe, Mary Carmen Jacobson, Anuj Rhoades and colleagues, with an educational tracie from [employer]. Review of Systems Const Denies body aches, Denies chills, Denies fever(s), Denies headache(s) and Denies poor appetite Eyes Reports no additional complaints ENT Denies dizziness and Denies headache(s) Card Denies chest pain, Denies edema, Denies lightheadedness and Denies dyspnea Resp Denies dyspnea GI Denies abdominal pain and Denies nausea Reports no additional complaints Musc Reports no additional complaints and Denies abnormal gait Skin/Breast Reports system reviewed and no additional complaints, except as documented Neuro Denies abnormal gait, Denies dizziness and Denies headache(s) Psych Reports no additional complaints Physical exam (Primary Care) Vital Signs: Last Vital Signs Temp 98.1 F 09/04/25 10:07 Pulse 57 09/04/25 10:07 BP 140/90 H 09/04/25 10:07 Pulse Ox 97 09/04/25 10:07 Oxygen Delivery Method Room Air 09/04/25 10:07 BMI result Body Mass Index 59.3 Tobacco/Smoking Status: Tobacco use Status Tobacco use date assessed 06/03/25 09/04/25 10:13 Patient Tobacco Use Status Never used Tobacco 09/04/25 10:13 e-Cigarette/Vaping Use Never Used 09/04/25 10:13 PHQ-9: PHQ-9 Score PHQ-9: Total score 24 09/04/25 10:18 Depression Screening Interpretation: Positive Thrive Assessment: Date of Thrive Assessment Date Thrive assessed 11/05/24 09/04/25 10:13 Const General: cooperative, healthy appearing, comfortable and no acute distress Orientation/consciousness: patient oriented x3 HENMT Head: Yes normocephalic Ears: hearing grossly normal bilaterally General nose exam: Normal external nose present Eyes General: appearance normal, both eyes and all related structures Conjunctivae: conjunctivae normal Neck Neck: Yes full ROM and Yes no lymphadenopathy Resp Effort & Inspection: normal respiratory effort Auscultation: clear to auscultation bilaterally, no crackles, no rales, no rhonchi and no wheezes Cardio Rate: regular rate Rhythm: regular rhythm Skin General skin exam: no rashes or lesions noted Neuro General: patient oriented x3 Gait exam (Neuro): Normal gait present Extrem General: Yes normal to inspection, Yes full ROM and No edema Psych Affect: normal affect Attitude: cooperative Insight: Good insight present (Psych) Judgement: Good judgement present (Psych) Coding Level of Care Code Est Pt Level 4 (34844) Diagnoses Seizure disorder G40.909 Schizophrenia, unspecified type F20.9 Schizophrenia type: unspecified Bipolar disorder F31.9 Morbid obesity with BMI of 50.0-59.9, adult E66.01; Z68.43 DONTE (obstructive sleep apnea) G47.33 Impaired glucose tolerance R73.02 Assessment & Plan Assessment & Plan (1) Seizure disorder: Code(s): G40.909 - Epilepsy, unspecified, not intractable, without status epilepticus Category: Medical Plan: She has been seeing Neurology and last seen in March. She is reporting 2 seizures since her last visit getting her Depakote may not be at a appropriate level. Plan to obtain Depakote levels and message was sent to patient's neurologist to reschedule a visit. (2) Schizophrenia: Code(s): F20.9 - Schizophrenia, unspecified Category: Medical Qualifiers: Schizophrenia type: unspecified Qualified Code(s): F20.9 - Schizophrenia, unspecified Plan: Patient on multiple psych medications reports feeling fatigued however they do manage her symptoms well. Referral was placed to psychiatrist [facility] at last visit and patient was provided with this number today. Discussed with the patient the hand shaking may be related to anxiety low suspicion for tardive dyskinesia at this time. We did discuss medication management however patient would not like to change medications today and is requesting her risperidone as she was previously on 8 mg previously. Plan to start at 2 mg at nighttime taper up as tolerated. Discussed with the patient who was more appropriate for Psychiatry to be managing his medications. (3) Bipolar disorder: Code(s): F31.9 - Bipolar disorder, unspecified Category: Medical Plan: See above plan for schizophrenia. Patient is doing well on sertraline (4) Morbid obesity with BMI of 50.0-59.9, adult: Code(s): E66.01 - Morbid (severe) obesity due to excess calories; Z68.43 - Body mass index [BMI] 50.0-59.9, adult Category: Medical Plan: Healthy diet and regular exercise is encouraged. She is requesting weight management clinic today and referral was placed. (5) DONTE (obstructive sleep apnea): Comment: mild - Weight loss by 10% of the current weight can result in close to 50% improvement in sleep apnea. Positional therapy would be helpful and advised to avoid supine position as much as possible. Code(s): G47.33 - Obstructive sleep apnea (adult) (pediatric) Category: Medical Plan: Discussed weight loss strategies and patient would like to see weight management and is declining injections today. (6) Impaired glucose tolerance: Code(s): R73.02 - Impaired glucose tolerance (oral) Category: Medical Plan: Decrease the amount of carbohydrates such as pasta, bread, rice, and potatoes and limit the amount of sweets. Although fruits are generally healthy they should be eaten in moderation as they are still high in sugar. Ordered for repeat blood work Plan This note was constructed using voice recognition software. While every effort has been made to ensure accuracy and hospice case manager, still areas may have been included sometimes these areas may affect the content or meeting of the given symptoms. Total time spent caring for the patient today was 20 minutes. This includes time spent before the visit reviewing the chart, time spent during the visit, and time spent after the visit and documentation. Orders: Orders Valproate Today G40.909 - Epilepsy, unspecified, not intractable, without status epilepticus Hemoglobin A1c Today R73.02 - Impaired glucose tolerance (oral) TSH reflex Free T4 Today Z13.29 - Encounter for screening for other suspected endocrine disorder Comprehensive Met. Panel Today R73.02 - Impaired glucose tolerance (oral), Z00.00 - Encounter for general adult medical examination without abnormal findings Vitamin B12 and Folate Today Z13.21 - Encounter for screening for nutritional disorder Vitamin D 25-OH Total Today Z13.21 - Encounter for screening for nutritional disorder Complete Blood Count Auto Diff Today Z13.0 - Encounter for screening for diseases of the blood and blood-forming organs and certain disorders involving the immune mechanism Referrals Medical Weight Management Referral E66.01 - Morbid (severe) obesity due to excess calories, G47.33 - Obstructive sleep apnea (adult) (pediatric), Z68.43 - Body mass index [BMI] 50.0-59.9, adult Medications: New [walker] As directed 1 ea 0RF E66.01 - Morbid (severe) obesity due to excess calories, G40.909 - Epilepsy, unspecified, not intractable, without status epilepticus, R26.81 - Unsteadiness on feet, R60.0 - Localized edema, Z68.43 - Body mass index [BMI] 50.0-59.9, adult [knee high compression socks] As directed; 10-20 mmHG 1 ea 0RF R60.0 - Localized edema risperidone 2 mg PO BEDTIME 90 tabs 0RF
--- OUTSIDE RECORDS SUMMARY | 2025-09-04 14:41 | XMS_ITS | Clinical Summary ---
Author Organization [employer] Address [address] [facility] [address] [place] [address] Care Team Providers Care All Around Gear Machine Operator Name Role Phone Unavailable Primary Care Provider [...] 2023 HPV/Cotest 2023 COVID-19 Vaccine (1 - 2024-2 6 season) 2025 Influenza Vaccine (#1) 2025 Zoster [...] patient's age to complete this topic Insurance [facility] STANDARD
== END 2025-09-04 10:58 | disposition home or self-care (01) ==
LOC: HO.HMCH 10:01
DX: G40.909 Epilepsy, unspecified, not intractable, without status epilepticus (principal); F20.9 Schizophrenia, unspecified; F31.9 Bipolar disorder, unspecified; E66.01 Morbid (severe) obesity due to excess calories; Z68.43 Body mass index [BMI] 50.0-59.9, adult; G47.33 Obstructive sleep apnea (adult) (pediatric); R73.02 Impaired glucose tolerance (oral)

== ENCOUNTER 2025-09-04 09:59 | Outpatient (REF) | payer MEDICAID, SELFPAY ==
[2025-09-04 11:21] LABS: MANUAL DIFF FLAG NO
[2025-09-04 11:57] LABS: Hematocrit 42.9 % (37.0-47.0); Hemoglobin 13.6 g/dl (12.0-16.0); Imm Gran Abs Auto 0.01 X10*3/uL (0.00-0.03); Imm Gran Pct Auto 0.1 % (0.0-0.4); Lymphocytes Absolute Auto 3.1 X10*3/uL (1.2-4.9); Mean Corpuscular HGB Conc 31.7 g/dl (31.0-35.0); Mean Corpuscular Hemoglobin 26.1 pg (27.0-33.0); Mean Corpuscular Volume 82.3 fL (80.0-98.0); NRBC Abs Auto 0.000 X10*3/uL (0.0-0.012); NRBC Pct Auto 0.0 /100WBC (0.0-0.2); Platelet Count 250 X10*3/uL (160-400); Red Blood Count 5.21 X10*6/uL (4.20-5.50); White Blood Count 6.9 X10*3/uL (4.8-10.8)
[2025-09-04 12:30] LABS: Hemoglobin A1C 150.6393 umol/L
[2025-09-04 12:41] LABS: Alanine Aminotransferase 102 U/L (0-31); Albumin Level 4.1 g/dL (3.5-5.0); Alkaline Phosphatase 108 U/L (39-117); Anion Gap 11 (12-20); Aspartate Amino Transferase 49 U/L (5-31); Blood Urea Nitrogen 15 mg/dL (9-16); Calcium 8.9 mg/dL (8.4-10.2); Carbon Dioxide 23 mmol/L (22-29); Chloride 109 mmol/L (96-108); Estimated Glomerular Filt Rate > 60; Potassium 4.3 mmol/L (3.3-5.1); Sodium 139 mmol/L (135-145); Total Protein 7.4 g/dL (6.5-8.0)
[2025-09-04 13:09] LABS: Folate 13.0 ng/mL (> or = 4.0); Vitamin B12 395 pg/mL (200-900)
== END 2025-09-04 10:00 | disposition home or self-care (01) ==
LOC: HO.LAB 09:59
DX: Z00.00 Encounter for general adult medical examination without abnormal findings (principal); Z13.21 Encounter for screening for nutritional disorder; Z13.0 Encounter for screening for diseases of the blood and blood-forming organs and certain disorders involving the immune mechanism; Z13.29 Encounter for screening for other suspected endocrine disorder; R73.02 Impaired glucose tolerance (oral); G40.909 Epilepsy, unspecified, not intractable, without status epilepticus; F20.9 Schizophrenia, unspecified; F31.9 Bipolar disorder, unspecified; E66.01 Morbid (severe) obesity due to excess calories; G47.33 Obstructive sleep apnea (adult) (pediatric); Z79.899 Other long term (current) drug therapy
CPT/HCPCS: 36415; 80053; 80164; 82306; 82607; 82746; 83036; 84443; 85025; 99212

== ENCOUNTER 2025-09-06 10:03 | Outpatient (REF) | payer MEDICAID, SELFPAY ==
--- OUTSIDE RECORDS SUMMARY | 2025-09-06 10:06 | XMS_ITS | Clinical Summary ---
Author Organization [employer] Address [address] [facility] [address] [place] [address] Care Team Providers Care Diecast Machine Operator Name Role Phone Unavailable Primary [...] patient's age to complete this topic Insurance [facility] STANDARD
[2025-09-06 11:10] LABS: Alanine Aminotransferase 116 U/L (0-31); Albumin Level 4.0 g/dL (3.5-5.0); Alkaline Phosphatase 108 U/L (39-117); Aspartate Amino Transferase 52 U/L (5-31); Total Protein 7.2 g/dL (6.5-8.0)
[2025-09-06 11:46] LABS: HBS Num1 28.22 mIU/mL (0-7.99); HBc Num1 0.05 S/CO (0.00-0.79); HBsAGNum1 0.42 S/CO (0.00-0.99); Hepatitis B Surface Antigen Negative (Negative); ~HepC Num1 0.08 S/CO (0.00-0.79); ~Hepatitis B Surface Antibody REACTIVE (Nonreactive); ~Hepatitis C Antibody Nonreactive (Nonreactive)
== END 2025-09-06 10:04 | disposition home or self-care (01) ==
LOC: HO.LAB 10:03
DX: Z11.59 Encounter for screening for other viral diseases (principal); R79.89 Other specified abnormal findings of blood chemistry; G40.909 Epilepsy, unspecified, not intractable, without status epilepticus
CPT/HCPCS: 36415; 80076; 80164; 86704; 86706; 86803; 87340